=== PATIENT | male | born 1995 | race Caucasian/White ===

== ENCOUNTER 2017-11-23 15:27 | Emergency (ER) | payer BC, OTHER ==
[~2017-11-23] VITALS: Ht 177.8 cm; Wt 122.5 kg
--- OUTSIDE RECORDS SUMMARY | 2017-11-23 15:34 | XMS REPORT ---
Author Author [facility] [employer] [facility] Medical Staff Organization [facility] Address [address], [place] [address] Phone [phone] Care Team Providers Care Welder First Class Name Role Phone ALICIA SNELL MD PP [phone] Summary purpose TRANSITION OF CARE AUTO GENERATION Chief Complaint and Reason for Visit No authorized Reason for Visit (Admitting Diagnosis) is available for this visit. Problem list No authorized problems tracked for continuity of care are available for this visit. Encounters No authorized problems tracked for encounter diagnoses are available for this visit. Medications No medications recorded for this patient visit Allergies, adverse reactions, alerts Allergen Category Ingredient Status Reaction Severity Onset No Known Drug Allergies No known drug allergies No Known Drug Allergies Confirmed or Verified Immunizations No immunizations recorded for this patient visit Relevant diagnostic tests and/or laboratory data No authorized results are available for this patient visit History of procedures No procedures recorded for this patient visit. Functional status No functional or cognitive status observations are available for this visit. Vital signs No authorized vital signs are available for this visit. Social history No Social History or smoking status observations were recorded for this visit. ( Unknown if ever smoked.) Treatment Plan No treatment plan text is available for this visit. Hospital discharge instructions No discharge instruction text is available for this visit.
--- OUTSIDE RECORDS SUMMARY | 2017-11-23 15:34 | XMS REPORT | Clinical Summary ---
Author Author Admin, RAÚL Organization [facility] Address Unknown Phone Unavailable Allergies, Adverse Reactions, Alerts Allergy Name Reaction Description Start Date Severity Status Provider No Known Allergies Wenpeterson Dickinson Conditions or Problems Problem Name Problem Code Onset Date Status Entry Date Provider Comment Standard Description Annotate FLANK PAIN, RIGHT 789.09 Active Radha Lerner Abdominal pain, other specified site; multiple sites URETERAL CALCULUS 592.1 Active Quiana Lerner MD Calculus of ureter Dizziness 780.4 Active Jennifer King APRN Dizziness and giddiness Headache 784.0 Active Jennifer King APRN Headache Depression, acute, recurrent 296.33 Active Jennifer King APRN Major depressive disorder, recurrent episode, severe degree, without mention of psychotic behavior Medication List Medication Instructions Start Date Stop Date Generic Name NDC Status Provider Patient Instruction No Drug Therapy Prescribed - none known did ask Wen Dickinson Vital Signs Date Name Value Unit Range Description blood pressure, diastolic, supine 86 mm[Hg] BP aguila blood pressure, diastolic, standing 81 mm[Hg] BP aguila blood pressure, diastolic 85 mm[Hg] BP aguila blood pressure, systolic, supine E&M 132 mm[Hg] BP sys blood pressure, systolic, standing 134 mm[Hg] BP sys blood pressure, systolic 136 mm[Hg] BP sys height E&M 72 [in_us] Bdy height pulse rate E&M 72 /min Heart rate temperature E&M 98.6 [degF] Body temperature weight E&M 279 [lb_av] Weight Measured Diagnostic Results Date Name Value Unit Range Description Lab Report: CBC W/DIFF - Hematology leukocyte count, blood 7.3 10^3/MM^3 10*3/mm3 4.6-10.2 neutrophils as percent of blood leukocytes 60.9 % 42.2-75.2 monocytes as percent of blood leukocytes 6.3 % 1.7-9.3 lymphocytes as percent of blood leukocytes 29.2 % 20.5-51.1 erythrocyte (RBC) count 5.39 10^6/MM^3 10*6/mm3 4.50-6.50 hemoglobin, blood 16.6 g/dL 14.0-18.0 hematocrit, blood 49.3 % 40.0-54.0 mean corpuscular volume, RBC 91 fL 80-97 mean corpuscular hemoglobin, RBC 30.9 pg 27.0-31.2 mean corpuscular hemoglobin concentration, RBC 33.8 G/DL % 31.8- 35.4 red blood cell distribution width 13.1 % 13.0-18.0 platelet count 267 10^3/MM^3 10*3/mm3 142-424 Lab Report: Comp. Metabolic Panel, Thyroid Stimulating Hormone (L), Free ... - Chemistry sodium, serum 141 mmol/L 491-334 4048/10/11 carbon dioxide, venous blood 28.0 mmol/L 21.0-32.0 potassium, serum 4.4 mmol/L 3.5-5.2 chloride, serum 103 mmol/L 98-107 blood glucose 98 mg/dL 65-110 urea nitrogen, blood 10 mg/dL 7-18 creatinine, serum 0.93 mg/dL 0.60-1.30 alanine aminotransferase (SGPT), serum 35 U/L 12-78 aspartate aminotransferase (SGOT), serum 14 U/L 15-37 calcium, serum 9.3 mg/dL 8.5-10.1 bilirubin, serum, total 0.50 mg/dL 0.00-1.00 TSH 3.55 m[iU]/mL 0.36-3.74 thyroxine, serum, free 0.96 ng/dL 0.59-1.17 Encounters Code Encounter Date Provider Facility CPT-39862 Level 4 New Patient 13:29:33 CDT Jennifer King APRN [facility] CPT-11283 Level 4 New Patient 20:08:56 CDT Quiana Lerner MD [facility] Procedures Code Procedure Name Date Entry Date Standard Description CPT-34363 Urine Dip (Floor Use Only) 20:08:56 CDT CPT-92174 Abd single AP View 13:34:22 CDT
--- OUTSIDE RECORDS SUMMARY | 2017-11-23 15:34 | XMS REPORT | Clinical Summary ---
Author Author Admin, RAÚL Organization [facility] Address Unknown Phone Unavailable Allergies, Adverse Reactions, [...] ... - Chemistry sodium, serum 141 mmol/L 460-318 0454/10/11 carbon dioxide, venous blood 28.0 mmol/L 21.0-32.0 [...] 0.59-1.17 Encounters Code Encounter Date Provider Facility CPT-36772 Level 4 New Patient 13:29:33 CDT Jennifer King APRN [facility] CPT-93867 Level 4 New Patient 20:08:56 CDT Quiana Lerner MD [facility] Procedures Code Procedure Name Date Entry Date Standard Description CPT-03785 Urine Dip (Floor Use Only) 20:08:56 CDT CPT-58413 Abd single AP View 13:34:22 CDT
--- OUTSIDE RECORDS SUMMARY | 2017-11-23 15:34 | XMS REPORT ---
Author Author [facility] [employer] [facility] Medical Staff Organization [facility] Address [address], [place] [address] Phone [phone] Care Team Providers Care Core Maker Name Role Phone ALICIA SNELL MD PP [phone] Summary purpose TRANSITION OF CARE AUTO GENERATION [...]
--- OUTSIDE RECORDS SUMMARY | 2017-11-23 15:34 | XMS REPORT | Clinical Summary ---
Author Author Admin, RAÚL Organization [facility] Address Unknown Phone Unavailable Allergies, Adverse Reactions, [...] ... - Chemistry sodium, serum 141 mmol/L 475-563 1498/10/11 carbon dioxide, venous blood 28.0 mmol/L 21.0-32.0 [...] 0.59-1.17 Encounters Code Encounter Date Provider Facility CPT-45852 Level 4 New Patient 13:29:33 CDT Jennifer King APRN [facility] CPT-45876 Level 4 New Patient 20:08:56 CDT Quiana Lerner MD [facility] Procedures Code Procedure Name Date Entry Date Standard Description CPT-25915 Urine Dip (Floor Use Only) 20:08:56 CDT CPT-87809 Abd single AP View 13:34:22 CDT
--- OUTSIDE RECORDS SUMMARY | 2017-11-23 15:34 | XMS REPORT ---
Author Author JON HUGHES [facility] Address [address] [place] [address] Care Team Providers Care Merchandise Manager Name Role Phone JON HUGHES Unavailable PROBLEMS Unknown Problems ALLERGIES No Information ENCOUNTERS Encounter Location Date Diagnosis [facility] [address] [facility] [id number] [address] Feb, Visit for TB skin test Z11.1 IMMUNIZATIONS No Known Immunizations SOCIAL HISTORY Never Assessed REASON FOR VISIT TB skin test--[facility] PLAN OF CARE Activity Details Follow Up 48-72 hours Reason: VITAL SIGNS MEDICATIONS Unknown Medications RESULTS No Results PROCEDURES Procedure Date Ordered Result Body Site TB INTRADERMAL 2017-03-12 N/A TB INTRADERMAL TEST Mar 12, 2017 INSTRUCTIONS MEDICATIONS ADMINISTERED No Known Medications
--- OUTSIDE RECORDS SUMMARY | 2017-11-23 15:34 | XMS REPORT | Clinical Summary ---
Author Author Admin, RAÚL Organization [facility] Address Unknown Phone Unavailable Allergies, Adverse Reactions, Alerts Allergy Name Reaction Description Start Date Severity Status Provider No Known Allergies Gabi Stephenson Conditions or Problems Problem Name Problem Code Onset Date Status Entry Date Provider Comment Standard Description Annotate FLANK PAIN, RIGHT 789.09 Active Radha Lerner Abdominal pain, other specified site; multiple sites URETERAL CALCULUS 592.1 Active Quiana Lerner MD Calculus of ureter Dizziness 780.4 Active Jennifer King APRN Dizziness and giddiness Headache 784.0 Active Jennifer King APRN Headache Medication List Medication Instructions Start Date Stop Date Generic Name NDC Status Provider Patient Instruction No Drug Therapy Prescribed - none known did ask Gabi Stephenson Diagnostic Results Date Name Value Unit Range [...] ... - Chemistry sodium, serum 141 mmol/L 378-413 9198/10/11 carbon dioxide, venous blood 28.0 mmol/L 21.0-32.0 [...] 0.59-1.17 Encounters Code Encounter Date Provider Facility CPT-78798 Level 4 New Patient 20:08:56 CDT Quiana Lerner MD [facility] Procedures Code Procedure Name Date Entry Date Standard Description CPT-01050 Urine Dip (Floor Use Only) 20:08:56 CDT CPT-67732 Abd single AP View 13:34:22 CDT
--- OUTSIDE RECORDS SUMMARY | 2017-11-23 15:34 | XMS REPORT | Clinical Summary ---
Author Author Admin, RAÚL Organization [facility] Address Unknown Phone Unavailable Allergies, [...] ... - Chemistry sodium, serum 141 mmol/L 208-214 2527/10/11 carbon dioxide, venous blood 28.0 mmol/L 21.0-32.0 [...] 0.59-1.17 Encounters Code Encounter Date Provider Facility CPT-89011 Level 4 New Patient 13:29:33 CDT Jennifer King APRN [facility] CPT-21474 Level 4 New Patient 20:08:56 CDT Quiana Lerner MD [facility] Procedures Code Procedure Name Date Entry Date Standard Description CPT-33408 Urine Dip (Floor Use Only) 20:08:56 CDT CPT-78022 Abd single AP View 13:34:22 CDT
--- OUTSIDE RECORDS SUMMARY | 2017-11-23 15:34 | XMS REPORT | Clinical Summary ---
Author Author Admin, RAÚL Organization [facility] Address Unknown Phone Unavailable Allergies, Adverse [...] ... - Chemistry sodium, serum 141 mmol/L 788-753 4458/10/11 carbon dioxide, venous blood 28.0 mmol/L 21.0-32.0 [...] 0.59-1.17 Encounters Code Encounter Date Provider Facility CPT-93189 Level 4 New Patient 13:29:33 CDT Jennifer King APRN [facility] CPT-61795 Level 4 New Patient 20:08:56 CDT Quiana Lerner MD [facility] Procedures Code Procedure Name Date Entry Date Standard Description CPT-33882 Urine Dip (Floor Use Only) 20:08:56 CDT CPT-05102 Abd single AP View 13:34:22 CDT
--- OUTSIDE RECORDS SUMMARY | 2017-11-23 15:35 | XMS REPORT | Clinical Summary ---
Author Author Admin, RAÚL Organization [facility] Address Unknown Phone Unavailable Allergies, Adverse [...] ... - Chemistry sodium, serum 141 mmol/L 680-070 9579/10/11 carbon dioxide, venous blood 28.0 mmol/L 21.0-32.0 [...] 0.59-1.17 Encounters Code Encounter Date Provider Facility CPT-20729 Level 4 New Patient 20:08:56 CDT Quiana Lerner MD [facility] Procedures Code Procedure Name Date Entry Date Standard Description CPT-95217 Urine Dip (Floor Use Only) 20:08:56 CDT CPT-48547 Abd single AP View 13:34:22 CDT
--- OUTSIDE RECORDS SUMMARY | 2017-11-23 15:35 | XMS REPORT | Continuity of Care Document ---
Author Author [facility] Organization [facility] Address [address] [place] [address] Phone Unavailable Care Team Providers Care Rat Culturist Name Role Phone ALICIA SNELL MD PCP Insurance Providers Payer Name Policy Number Subscriber Name Relationship [facility] [id number] Funmilayo Moya 18 Self / Same As Patient Advance Directives Directive Response Recorded Date/Time Advance Directives No 09/22/14 3:28am Durable POA for HC No 09/22/14 3:28am Power of Learning Support Resource Room Teacher No 09/22/14 3:28am Organ Donor Yes 09/22/14 3:28am Living Will No 09/22/14 3:28am Chief Complaint and Reason for Visit Chief Complaint General Complaint Reason for Visit Acute tonsillitis [id number] Problems Active Problems Medical Problem Onset Date Status Acute tonsillitis Unknown Acute Dehydration symptoms Unknown Acute Pharyngitis, acute Unknown Acute Viral disease Unknown Acute Medications Current Home Medications Medication Dose Units Route Directions Days/Qty Instructions Start Date Acetaminophen With Codeine (Tylenol # 3 Tablet) 1 Tab 1 Tab Oral Every 6 To 8 Hours As Needed as needed for Pain/Fever 14 09/22/14 Azithromycin 250 Mg Oral Once A Day 6 Take two tablets the first day and then take 1 tablet daily for the next 4 days 09/22/14 No Meds for None 09/22/14 Ondansetron Hcl (Zofran) 4 Mg 4 Mg Oral Every 4 To 6 Hours As Needed as needed for Nausea / Vomiting 20 09/22/14 Social History Social History Problem Response Recorded Date/Time Smoking Status Never smoker 09/22/2014 3:31am Smoked in the last 12 months? No 09/22/2014 3:31am Do you dip or chew tobacco? No 09/22/2014 3:31am Approx how many cigs per day? 0 09/22/2014 3:31am Level of Dependence Low 09/22/2014 3:31am Former smoker, last day smoked? NEVER 09/22/2014 3:31am Query Response Start Date Stop Date Smoking Status Never smoker Hospital Discharge Instructions No hospital discharge instructions. Plan of Care Discharge Date 09/22/14 7:00am Disposition 01 D/C HOME Condition at Discharge Stable and Improved Instructions/Education Provided Dehydration (ED) Pharyngitis (ED) Tonsillitis (ED) Viral Syndrome (ED) Prescriptions See Medication Section Referrals ALICIA SNELL MD - Additional Instructions/Education Home to rest. Have him eat ice chips and drink cool water if throat becomes increasingly painful. drink plenty of fluids today-including electrolytes may use the medication for nausea if needed He may take ibuprofen if needed for generalized aches May use pain medication if needed for severe pain Start antibiotics today as since your symptoms are still fairly severe, we are going to treat your throat with antibiotics Functional Status Query Response Date Recorded Activities of Daily Living Performs w/o Assistance September 22, 2014 3:31am Cognitive Function Intact September 22, 2014 3:31am Allergies, Adverse Reactions, Alerts No known allergies. Immunizations No immunization records. Vital Signs Acute Vital Signs Vital Response Date/Time Temperature (Fahrenheit) 98.6 degrees F (97.6 - 99.5) 09/22/2014 6:30am Temperature (Calculated Celsius) 37.62142 degrees C (36.4 - 37.5) 09/22/2014 6:30am Temperature Source Temporal Artery Scan 09/22/2014 6:30am Pulse Pulse Ox Pulse Rate (adult) 70 beats per minute (60 - 90) 09/22/2014 6:30am Pulse Location Modifier Right 09/22/2014 6:30am Oxygen Saturation Respiratory Rate 14 breaths per minute (12 - 24) 09/22/2014 6:30am O2 Sat by Pulse Oximetry 95 % (90 - 100) 09/22/2014 6:30am Blood Pressure 133/92 mm Hg 09/22/2014 6:30am Blood Pressure Mean 106 mm Hg 09/22/2014 6:30am Height 5 ft 10 in Weight 230 lb Body Mass Index 33.0 kg/m^2 Results Laboratory Results Test Name Result Units Flags Reference Collection Date/Time Result Date/ Time Comments White Blood Count 7.7 x10^3/uL 4.0-11.0 09/22/2014 4:00am 09/22/2014 4: 21am Red Blood Count 4.84 10^6/uL 4.50-6.50 09/22/2014 4:00am 09/22/2014 4: 21am Hematocrit 44.8 % 40.0-54.0 09/22/2014 4:00am 09/22/2014 4:21am Mean Corpuscular Volume 93 fl 76-96 09/22/2014 4:00am 09/22/2014 4: 21am Mean Corpuscular Hemoglobin 31.3 pg 27.0-32.0 09/22/2014 4:00am 2014 4:21am Mean Corpuscular Hemoglobin Concent 33.8 g/dl 31.0-35.0 09/22/2014 4: 00am 09/22/2014 4:21am Red Cell Distribution Width 12.3 % 11.0-16.0 09/22/2014 4:00am 2014 4:21am Platelet Count 251 10^3/uL 150-400 09/22/2014 4:00am 09/22/2014 4:21am Mean Platelet Volume 8.3 fl 6.0-10.0 09/22/2014 4:00am 09/22/2014 4: 21am Neutrophils (%) (Auto) 56.5 % 45.0-70.0 09/22/2014 4:00am 09/22/2014 4: 21am Lymphocytes (%) (Auto) 27.9 % 20.0-40.0 09/22/2014 4:00am 09/22/2014 4: 21am Monocytes (%) (Auto) 8.5 % 3.0-10.0 09/22/2014 4:00am 09/22/2014 4: 21am Eosinophils (%) (Auto) 6.4 % *H 1.0-5.0 09/22/2014 4:00am 09/22/2014 4: 21am Basophils (%) (Auto) 0.7 % H 0.0-0.5 09/22/2014 4:00am 09/22/2014 4: 21am Neutrophils # (Auto) 4.33 x10^3/uL 2.00-7.50 09/22/2014 4:00am 2014 4:21am Lymphocytes # (Auto) 2.14 x10^3/uL 1.50-4.00 09/22/2014 4:00am 2014 4:21am Monocytes # (Auto) 0.65 x10^3/uL 0.20-0.80 09/22/2014 4:00am 2014 4:21am Eosinophils # (Auto) 0.49 x10^3/uL H 0.04-0.40 09/22/2014 4:00am 2014 4:21am Basophils # (Auto) 0.05 x10^3/uL 0.02-0.10 09/22/2014 4:00am 2014 4:21am Streptococcus Screen NEGATIVE NEGATIVE 09/22/2014 6:13am 09/22/2014 6 :36am Volume Urine Centrifuged 12 ml 09/22/2014 4:14am 09/22/2014 4:22am Test based ON 12 ml volume. Urine Color STRAW STRAW 09/22/2014 4:14am 09/22/2014 4:22am Urine Clarity CLEAR CLEAR 09/22/2014 4:14am 09/22/2014 4:22am Urine Specific Mcdermott 1.020 1.010-1.020 09/22/2014 4:14am 2014 4:22am Urine pH 5.0 5.0-6.0 09/22/2014 4:14am 09/22/2014 4:22am Urine Leukocyte Esterase NEGATIVE NEGATIVE 09/22/2014 4:14am 2014 4:22am Urine Nitrite NEGATIVE NEGATIVE 09/22/2014 4:14am 09/22/2014 4:22am Urine Protein NEGATIVE NEGATIVE 09/22/2014 4:14am 09/22/2014 4:22am Urine Glucose (UA) NEGATIVE NEGATIVE 09/22/2014 4:14am 09/22/2014 4: 22am Urine Ketones NEGATIVE NEGATIVE 09/22/2014 4:1409/22/2014 4:22am Urine Urobilinogen 0.2 0.2-1.0 09/22/2014 4:14am 09/22/2014 4:22am Urine Bilirubin NEGATIVE NEGATIVE 09/22/2014 4:1409/22/2014 4: 22am Urine Occult Blood NEGATIVE NEGATIVE 09/22/2014 4:14am 09/22/2014 4: 22am Urine WBC NONE #/HPF OCCASIONAL 09/22/2014 4:1409/22/2014 4:22am Urine RBC NONE #/HPF OCCASIONAL 09/22/2014 4:14am 09/22/2014 4:22am Urine Epithelial Cells NONE #/HPF OCCASIONAL 09/22/2014 4:14am 2014 4:22am Urine Other Casts NONE #/LPF NEGATIVE 09/22/2014 4:1409/22/2014 4: 22am Urine Bacteria NONE NONE 09/22/2014 4:14am 09/22/2014 4:22am Urine Other Crystals NONE NONE 09/22/2014 4:1409/22/2014 4:22am Urine Mucus NONE NONE 09/22/2014 4:1409/22/2014 4:22am Urine Culture Indicated YES A NO 09/22/2014 4:1409/22/2014 6:37am Sodium Level 140 mmol/L 137-145 09/22/2014 4:00am 09/22/2014 4:31am Potassium Level 3.6 mmol/L 3.5-5.1 09/22/2014 4:00am 09/22/2014 4:31am Carbon Dioxide Level 26.1 mmol/L 09/22/2014 4:0009/22/2014 4: 31am Anion Gap 15.5 mEq/L -09/22/2014 4:00am 09/22/2014 4:31am Blood Urea Nitrogen 13 mg/dL 11-1109/22/2014 4:00am 09/22/2014 4:31am Creatinine 1.10 mg/dl 0.66-1.25 09/22/2014 4:00am 09/22/2014 4:31am Est Glomerular Filtrat Rate mL/min 86.23 09/22/2014 4:002014 4:31am GFR NORMALS: Stage I: GFR >90 Stage II GFR 60-89 Stage III GFR 30-60 Stage IV: GFR 15-29 Stage V: GFR <15 BUN/Creatinine Ratio 11.81 09/22/2014 4:00am 09/22/2014 4:31am Glucose Level 111 mg/dL H 74-106 09/22/2014 4:00am 09/22/2014 4:31am Calculated Osmolality 290.6 mosm/kg 273-304 09/22/2014 4:00am 2014 4:31am Calcium Level 9.0 mg/dL 8.4-10.2 09/22/2014 4:00am 09/22/2014 4:31am Total Bilirubin 0.6 mg/dL 0.2-1.3 09/22/2014 4:00am 09/22/2014 4:31am Aspartate Amino Transf (AST/SGOT) 22 U/L 17-59 09/22/2014 4:00am 2014 4:31am Alanine Aminotransferase (ALT/SGPT) 42 U/L 21-72 09/22/2014 4:00am 02/2014 4:31am Alkaline Phosphatase 71 U/L 38-126 09/22/2014 4:00am 09/22/2014 4:31am Total Protein 6.8 g/dL 6.4-8.4 09/22/2014 4:00am 09/22/2014 4:31am Albumin 3.9 g/dL 3.4-5.5 09/22/2014 4:00am 09/22/2014 4:31am Globulin 2.9 2.3-3.5 09/22/2014 4:00am 09/22/2014 4:31am Albumin/Globulin Ratio 1.344 09/22/2014 4:00am 09/22/2014 4:31am Amylase Level 39 U/L 30-110 09/22/2014 6:13am 09/22/2014 6:29am Lipase 121 U/L 23-300 09/22/2014 6:13am 09/22/2014 6:29am Monoscreen NEGATIVE NEGATIVE 09/22/2014 6:13am 09/22/2014 6:29am Procedures No known history of procedures. Encounters Encounter Location Arrival/Admit Date Discharge/Depart Date Attending Provider Departed Emergency Room [facility] 08/01/15 3:25am 09/22/14 7: 00am NABILA MOYA APRN Recent Diagnosis
--- OUTSIDE RECORDS SUMMARY | 2017-11-23 15:35 | XMS REPORT | Clinical Summary ---
Author Author Admin, RAÚL Organization [facility] Address Unknown Phone Unavailable Allergies, Adverse Reactions, [...] ... - Chemistry sodium, serum 141 mmol/L 420-500 8649/10/11 carbon dioxide, venous blood 28.0 mmol/L 21.0-32.0 [...] 0.59-1.17 Encounters Code Encounter Date Provider Facility CPT-61369 Level 4 New Patient 20:08:56 CDT Quiana Lerner MD [facility] Procedures Code Procedure Name Date Entry Date Standard Description CPT-16725 Urine Dip (Floor Use Only) 20:08:56 CDT CPT-43201 Abd single AP View 13:34:22 CDT
--- OUTSIDE RECORDS SUMMARY | 2017-11-23 15:35 | XMS REPORT | Clinical Summary ---
Author Author Admin, RAÚL Organization [facility] Address Unknown Phone Unavailable Allergies, Adverse [...] ... - Chemistry sodium, serum 141 mmol/L 203-593 9113/10/11 carbon dioxide, venous blood 28.0 mmol/L 21.0-32.0 [...] 0.59-1.17 Encounters Code Encounter Date Provider Facility CPT-68407 Level 4 New Patient 13:29:33 CDT Jennifer King APRN [facility] CPT-73576 Level 4 New Patient 20:08:56 CDT Quiana Lerner MD [facility] Procedures Code Procedure Name Date Entry Date Standard Description CPT-89196 Urine Dip (Floor Use Only) 20:08:56 CDT CPT-83638 Abd single AP View 13:34:22 CDT
--- OUTSIDE RECORDS SUMMARY | 2017-11-23 15:35 | XMS REPORT | Clinical Summary ---
Author Author Admin, RAÚL Organization [facility] Address Unknown Phone Unavailable Allergies, Adverse Reactions, [...] ... - Chemistry sodium, serum 141 mmol/L 312-638 4226/10/11 carbon dioxide, venous blood 28.0 mmol/L 21.0-32.0 [...] 0.59-1.17 Encounters Code Encounter Date Provider Facility CPT-50354 Level 4 New Patient 20:08:56 CDT Quiana Lerner MD [facility] Procedures Code Procedure Name Date Entry Date Standard Description CPT-11095 Urine Dip (Floor Use Only) 20:08:56 CDT CPT-78020 Abd single AP View 13:34:22 CDT
--- OUTSIDE RECORDS SUMMARY | 2017-11-23 15:35 | XMS REPORT | Clinical Summary ---
Author Author Admin, RAÚL Organization [facility] Address Unknown Phone Unavailable Allergies, Adverse Reactions, [...] ... - Chemistry sodium, serum 141 mmol/L 215-897 6804/10/11 carbon dioxide, venous blood 28.0 mmol/L 21.0-32.0 [...] 0.59-1.17 Encounters Code Encounter Date Provider Facility CPT-98206 Level 4 New Patient 20:08:56 CDT Quiana Lerner MD [facility] Procedures Code Procedure Name Date Entry Date Standard Description CPT-67458 Urine Dip (Floor Use Only) 20:08:56 CDT CPT-41703 Abd single AP View 13:34:22 CDT
--- OUTSIDE RECORDS SUMMARY | 2017-11-23 15:35 | XMS REPORT | Continuity of Care Document ---
Author Author [facility] Organization [facility] Address [address] [place] [address] Phone Unavailable Care Team Providers Care Enrollment Nurse Name Role Phone ALICIA SNELL MD PCP Insurance Providers Payer Name Policy Number Subscriber Name Relationship Workers Compensation [id number] Funmilayo Moya 20 Employee Advance Directives Directive Response Recorded Date/Time Advance Directives No 09/19/15 3:23pm Advance Directive on File No 09/20/15 2:16am Durable POA for HC No 09/20/15 2:16am Power of Home Inspector No 09/20/15 2:16am Organ Donor No 09/20/15 2:16am Living Will No 09/20/15 2:16am Chief Complaint and Reason for Visit Chief Complaint Nausea,Vomiting,Diarrhea Reason for Visit Headache Problems Active Problems Medical Problem Onset Date Status Acute tonsillitis Unknown Acute Dehydration symptoms Unknown Acute Headache Unknown Acute Heat exhaustion Unknown Acute Pharyngitis, acute Unknown Acute Viral disease Unknown Acute Medications Current Home Medications Medication Dose Units Route Directions Days/Qty Instructions Start Date Hydrocodone/Acetaminophen 1 Each 1 Each Oral Every 4 To 6 Hours As Needed as needed for Pain 10 09/19/15 Past Home Medications Medication Directions Ordered Status [No Meds] , for None 09/22/14 Discontinued Azithromycin (Zithromax) 250 Mg Tablet, 250 Mg Oral Once A Day 09/22/14 Discontinued Acetaminophen With Codeine 1 Tab Tablet, 1 Tab Oral Every 6 To 8 Hours As Needed as needed for Pain/Fever 09/22/14 Discontinued Ondansetron Hcl 4 Mg Tablet, 4 Mg Oral Every 4 To 6 Hours As Needed as needed for Nausea / Vomiting 09/22/14 Discontinued Social History Social History Problem Response Recorded Date/Time Alcohol Use none 09/20/2015 2:30am Drug Use none 09/20/2015 2:30am Smoking Status Never smoker 09/20/2015 2:18am Smoked in the last 12 months? No 09/20/2015 2:18am Do you dip or chew tobacco? No 09/20/2015 2:18am Approx how many cigs per day? 0 09/20/2015 2:18am Level of Dependence Low 09/20/2015 2:30am Former smoker, last day smoked? Never 09/20/2015 2:18am Query Response Start Date Stop Date Smoking Status Never smoker Hospital Discharge Instructions No hospital discharge instructions. Plan of Care Discharge Date 09/20/15 2:30am Disposition 02 D/C TO OTHER ACUTE FACILITY Condition at Discharge Stable Instructions/Education Provided Acute Nausea and Vomiting (ED) Forms Provided ER Discharge Phone Call Check Prescriptions See Medication Section Referrals ALICIA SNELL MD - Additional Instructions/Education Transfer to [facility] Functional Status Query Response Date Recorded Activities of Daily Living Performs with Assistance September 20, 2015 2:19am Cognitive Function Moderately Impaired September 20, 2015 2:19am Allergies, Adverse Reactions, Alerts No known allergies. Immunizations No immunization records. Vital Signs Acute Vital Signs Vital Response Date/Time Temperature (Fahrenheit) 98 degrees F (97.6 - 99.5) 09/20/2015 2:20am Temperature (Calculated Celsius) 36.6696 degrees C (36.4 - 37.5) 09/20/2015 2 :20am Temperature Source Temporal Artery Scan 09/20/2015 2:20am Pulse Pulse Ox Pulse Rate (adult) 63 beats per minute (60 - 90) 09/20/2015 2:20am Pulse Location Modifier Right 09/20/2015 2:20am Oxygen Saturation Respiratory Rate 16 breaths per minute (12 - 24) 09/20/2015 2:20am O2 Sat by Pulse Oximetry 98 % (90 - 100) 09/20/2015 2:20am Blood Pressure 147/97 mm Hg 09/20/2015 2:20am Blood Pressure Mean 114 mm Hg 09/20/2015 2:20am Height 6 ft 0 in Weight 270 lb Body Mass Index 36.6 kg/m^2 Results Laboratory Results Test Name Result Units Flags Reference Collection Date/Time Result Date/ Time Comments White Blood Count 6.6 x10^3/uL 4.0-11.0 09/19/2015 4:09/19/2015 4: 44pm Red Blood Count 4.69 10^6/uL 4.50-6.50 09/19/2015 4:09/19/2015 4: 44pm Hematocrit 41.9 % 40.0-54.0 09/19/2015 4:09/19/2015 4:44pm Mean Corpuscular Volume 89 fl 76-96 09/19/2015 4:09/19/2015 4: 44pm Mean Corpuscular Hemoglobin 31.3 pg 27.0-32.0 09/19/2015 4:2015 4:44pm Mean Corpuscular Hemoglobin Concent 35.1 g/dl H 31.0-35.0 09/19/2015 4: 09/19/2015 4:44pm Red Cell Distribution Width 12.7 % 11.0-16.0 09/19/2015 4:2015 4:44pm Platelet Count 230 10^3/uL 150-400 09/19/2015 4:09/19/2015 4:44pm Mean Platelet Volume 10.1 fl H 6.0-10.0 09/19/2015 4:09/19/2015 4: 44pm Neutrophils (%) (Auto) 59.7 % 45.0-70.0 09/19/2015 4:09/19/2015 4: 44pm Lymphocytes (%) (Auto) 28.4 % 20.0-40.0 09/19/2015 4:09/19/2015 4: 44pm Monocytes (%) (Auto) 9.7 % 3.0-10.0 09/19/2015 4:09/19/2015 4: 44pm Eosinophils (%) (Auto) 1.7 % 1.0-5.0 09/19/2015 4:09/19/2015 4: 44pm Basophils (%) (Auto) 0.5 % 0.0-0.5 09/19/2015 4:09/19/2015 4:44pm Neutrophils # (Auto) 3.93 x10^3/uL 2.00-7.50 09/19/2015 4:pm 2015 4:44pm Lymphocytes # (Auto) 1.87 x10^3/uL 1.50-4.00 09/19/2015 4:pm 2015 4:44pm Monocytes # (Auto) 0.64 x10^3/uL 0.20-0.80 09/19/2015 4:2015 4:44pm Eosinophils # (Auto) 0.11 x10^3/uL 0.04-0.40 09/19/2015 4:pm 2015 4:44pm Basophils # (Auto) 0.03 x10^3/uL 0.02-0.10 09/19/2015 4:pm 2015 4:44pm Volume Urine Centrifuged 12 ml 09/19/2015 5:09/19/2015 5:40pm Test based ON 12 ml volume. Urine Color STRAW STRAW 09/19/2015 5:09/19/2015 5:40pm Urine Clarity CLEAR CLEAR 09/19/2015 5:09/19/2015 5:40pm Urine Specific Calmar 1.020 1.010-1.020 09/19/2015 5:2015 5:40pm Urine pH 6.5 A 5.0-6.0 09/19/2015 5:09/19/2015 5:40pm Urine Leukocyte Esterase NEGATIVE NEGATIVE 09/19/2015 5:2015 5:40pm Urine Nitrite NEGATIVE NEGATIVE 09/19/2015 5:09/19/2015 5:40pm Urine Protein NEGATIVE NEGATIVE 09/19/2015 5:09/19/2015 5:40pm Urine Glucose (UA) NEGATIVE NEGATIVE 09/19/2015 5:09/19/2015 5: 40pm Urine Ketones NEGATIVE NEGATIVE 09/19/2015 5:09/19/2015 5:40pm Urine Urobilinogen 0.2 0.2-1.0 09/19/2015 5:09/19/2015 5:40pm Urine Bilirubin NEGATIVE NEGATIVE 09/19/2015 5:09/19/2015 5: 40pm Urine Occult Blood NEGATIVE NEGATIVE 09/19/2015 5:09/19/2015 5: 40pm Urine WBC NONE #/HPF OCCASIONAL 09/19/2015 5:09/19/2015 5:40pm Urine RBC NONE #/HPF OCCASIONAL 09/19/2015 5:09/19/2015 5:40pm Urine Epithelial Cells NONE #/HPF OCCASIONAL 09/19/2015 5:2015 5:40pm Urine Other Casts NONE #/LPF NEGATIVE 09/19/2015 5:09/19/2015 5: 40pm Urine Bacteria NONE NONE 09/19/2015 5:09/19/2015 5:40pm Urine Other Crystals NONE NONE 09/19/2015 5:09/19/2015 5:40pm Urine Mucus NONE NONE 09/19/2015 5:09/19/2015 5:40pm Urine Culture Indicated NO NO 09/19/2015 5:09/19/2015 5:40pm Sodium Level 140 mmol/L 137-145 09/19/2015 4:09/19/2015 4:46pm Potassium Level 3.8 mmol/L 3.5-5.1 09/19/2015 4:09/19/2015 4:46pm Carbon Dioxide Level 24.1 mmol/L 09/19/2015 4:09/19/2015 4: 46pm Anion Gap 15.7 mEq/L -09/19/2015 4:09/19/2015 4:46pm Blood Urea Nitrogen 15 mg/dL 11-1109/19/2015 4:09/19/2015 4:46pm Creatinine 1.08 mg/dl 0.66-1.25 09/19/2015 4:09/19/2015 4:46pm Est Glomerular Filtrat Rate mL/min 87.17 09/19/2015 4:2015 4:43pm GFR NORMALS: Stage I: GFR >90 Stage II GFR 60-89 Stage III GFR 30-60 Stage IV: GFR 15-29 Stage V: GFR <15 BUN/Creatinine Ratio 13.88 09/19/2015 4:09/19/2015 4:46pm Glucose Level 95 mg/dL 74-106 09/19/2015 4:pm 09/19/2015 4:46pm Calculated Osmolality 290.3 mosm/kg 273-304 09/19/2015 4:2015 4:46pm Calcium Level 9.0 mg/dL 8.4-10.2 09/19/2015 4:09/19/2015 4:46pm Total Bilirubin 0.5 mg/dL 0.2-1.3 09/19/2015 4:pm 09/19/2015 4:46pm Aspartate Amino Transf (AST/SGOT) 17 U/L 17-59 09/19/2015 4:pm 2015 4:46pm Alanine Aminotransferase (ALT/SGPT) 41 U/L 21-72 09/19/2015 4:pm 4:46pm Alkaline Phosphatase 66 U/L 38-126 09/19/2015 4:09/19/2015 4:46pm Total Creatine Kinase 271 U/L H 55-170 09/19/2015 5:pm 09/19/2015 5: 25pm Troponin < 0.05 mg/mL 0-0.056 09/19/2015 5:pm 09/19/2015 5:25pm Creatine Kinase MB 1.5 ng/mL 0-3.6 09/19/2015 5:pm 09/19/2015 5:25pm Total Protein 6.7 g/dL 6.4-8.4 09/19/2015 4:pm 09/19/2015 4:46pm Albumin 3.9 g/dL 3.4-5.5 09/19/2015 4:09/19/2015 4:46pm Globulin 2.8 2.3-3.5 09/19/2015 4:09/19/2015 4:46pm Albumin/Globulin Ratio 1.392 09/19/2015 4:pm 09/19/2015 4:46pm Procedures No known history of procedures. Encounters Encounter Location Arrival/Admit Date Discharge/Depart Date Attending Provider Departed Emergency Room [facility] 09/20/15 1:50am 09/20/15 2: 30am ARIEL ROGERS Departed Emergency Room [facility] 09/19/15 2:45pm 09/19/15 6: 30pm ARIEL ROGERS Recent Diagnosis
--- OUTSIDE RECORDS SUMMARY | 2017-11-23 15:36 | XMS REPORT | Continuity of Care Document ---
Author Author [facility] Organization [facility] Address [facility] [address] [place] [address] Phone Unavailable Support Name Relationship Address Phone WOODY HENATHAN Caregiver [address] [place] [address] Unavailable GRIFFIN DENICE Next Of Kin [address] [place] [address] Insurance Providers Payer Name Policy Number Subscriber Name Relationship [place] Other [id number] Funmilayo Moya 18 Self / Same As Patient Advance Directives Directive Response Recorded Date/Time Advance Directives No 09/20/15 6:28am Living Will No 09/20/15 6:28am Health Care Proxy No 09/20/15 6:28am Power of Compressor Operator Portable for Health Care No 09/20/15 6:28am Organ, Tissue, or Eye Donor No 09/20/15 6:28am Do you have a signed organ donor card? No 09/20/15 6:28am Chief Complaint and Reason for Visit Chief Complaint HEADACHE Reason for Visit Syncope Problems Active Problems Medical Problem Onset Date Status Syncope Unknown Acute Medications No medication information available. Social History Social History Problem Response Recorded Date/Time Smoking Status Never smoker 09/20/2015 3:49am Tobacco Use Denies Use 09/20/2015 3:49am Alcohol Use none 09/20/2015 3:49am Drug Use none 09/20/2015 3:49am Query Response Start Date Stop Date Smoking Status Never smoker Hospital Discharge Instructions No hospital discharge instructions. Plan of Care Discharge Date 09/20/15 4:45am Disposition 01 HOME, ASSISTED,ASSISTED LIVING Condition at Discharge Stable Instructions/Education Provided Syncope (ED) Prescriptions See Medication Section Referrals Your Physician - 2-3 Days Additional Instructions/Education Avoid heat exposure for the next 2-3 days, stay adequately hydrated with water. Avoid excess physical activity until you are feeling better. Please follow up with your physician in the next 2-3 days. Return immediately for worsening signs or symptoms. Functional Status Query Response Date Recorded Patient Behavior Fatigued Cooperative Appropriate September 20, 2015 3:21am Allergies, Adverse Reactions, Alerts No allergy information available. Immunizations Name Given Type Hx Diphtheria, Pertussis, Tetanus Vaccination Up To Date Historical Hx Influenza Vaccination Yes Historical Hx Pneumococcal Vaccination Yes Historical Vital Signs Acute Vital Signs Vital Response Date/Time Temperature (Fahrenheit) 97.7 degrees F (97.6 - 99.5) 09/20/2015 3:27am Temperature Source Temporal Artery 09/20/2015 3:27am Pulse Rate (adult) 55 bpm (60 - 90) 09/20/2015 4:31am Respiratory Rate 20 bpm (12 - 24) 09/20/2015 4:31am Blood Pressure 123/62 mm Hg 09/20/2015 4:31am O2 Sat by Pulse Oximetry 97 % (90 - 100) 09/20/2015 4:31am Oxygen Delivery Method 09/20/2015 4:31am Height 6 ft 0 in Weight 270 lb Body Mass Index 36.0 kg/m^2 Results No known relevant diagnostic tests, laboratory data and/or discharge summary. Procedures Procedure Status Date Provider(s) Computed tomography of head without contrast Completed 09/20/15 EMMA HE DO Encounters Encounter Location Arrival/Admit Date Discharge/Depart Date Attending Provider Departed Emergency Room [place] 09/20/15 3:23am 09/20/15 4:45am EMMA HE DO Recent Diagnosis
--- OUTSIDE RECORDS SUMMARY | 2017-11-23 15:36 | XMS REPORT | Continuity of Care Document ---
Author Author [facility] Organization [facility] Address [address] [place] [address] Phone Unavailable Care Team Providers Care [employer] Shuttle Driver Name Role Phone ALICIA BARTON MD PCP Insurance Providers Payer Name Policy Number Subscriber Name Relationship [facility] [id number] Funmilayo Moya 19 Child Advance Directives Directive Response Recorded Date/Time Advance Directives No 09/19/15 3:23pm Advance Directive on File No 07/31/16 11:11pm Durable POA for HC No 07/31/16 11:11pm Power of Distribution Field Technician No 07/31/16 11:11pm Organ Donor No 07/31/16 11:11pm Living Will No 07/31/16 11:11pm Chief Complaint and Reason for Visit Chief Complaint Male Urogenital Problems Reason for Visit [id number] Headache Problems Active Problems Medical Problem Onset Date Status Acute tonsillitis Unknown Acute Dehydration symptoms Unknown Acute Headache Unknown Acute Heat exhaustion Unknown Acute Myalgia Unknown Acute Pharyngitis, acute Unknown Acute Syncope Unknown Acute Viral disease Unknown Acute Medications Current Home Medications Medication Dose Units Route Directions Days/Qty Instructions Start Date Hydrocodone/Acetaminophen 1 Each 1 Each Oral Every 4 To 6 Hours As Needed as needed for Pain 10 09/19/15 Butalb/Acetaminophen/Caffeine 1 Each 1 Each Oral Every 6 To 8 Hours As Needed as needed for Headache 03/24/16 Past Home Medications Medication Directions Ordered Status [...] Response Recorded Date/Time Smoking Status Never smoker 07/31/2016 11:16pm Smoked in the last 12 months? No 07/31/2016 11:16pm Do you dip or chew tobacco? No 07/31/2016 11:16pm Approx how many cigs per day? 0 07/31/2016 11:16pm Level of Dependence Low 07/31/2016 11:16pm Former smoker, last day smoked? NA 07/31/2016 11:16pm Query Response Start Date Stop Date Smoking Status Never smoker Hospital Discharge Instructions No hospital discharge instructions. Plan of Care Discharge Date 08/01/16 1:26am Disposition 07 AGAINST MEDICAL ADVICE Condition at Discharge Stable and Improved Instructions/Education Provided Dehydration (ED) Forms Provided ER Discharge Phone Call Check Prescriptions See Medication Section Referrals ALICIA BARTON MD - Additional Instructions/Education Fluids and nausea medicine given in ER. Go home and rest. Follow up with Dr. Barton's office to discuss need for referral. Pt spoke and a request for a neurology consult for the headaches with syncope and vomiting at times. Return to ER for concerns or issues. Keep headache journal/diary of frequency and symptoms. Reference Links Functional Status Query Response Date Recorded Activities of Daily Living Performs w/o Assistance July 31, 2016 11:17pm Allergies, Adverse Reactions, Alerts No known allergies. Immunizations No immunization records. Vital Signs Acute Vital Signs Vital Response Date/Time Temperature (Fahrenheit) 98.0 degrees F (97.6 - 99.5) 08/01/2016 1:23am Temperature (Calculated Celsius) 36.79213 degrees C (36.4 - 37.5) 08/01/2016 1:23am Temperature Source Tympanic 08/01/2016 1:23am Pulse Pulse Ox Pulse Rate (adult) 72 beats per minute (60 - 90) 08/01/2016 1:23am Pulse Location Modifier Left 08/01/2016 1:23am Oxygen Saturation Respiratory Rate 16 breaths per minute (12 - 24) 08/01/2016 1:23am O2 Sat by Pulse Oximetry 96 % (90 - 100) 08/01/2016 1:23am Blood Pressure 133/63 mm Hg 08/01/2016 1:23am Blood Pressure Mean 86 mm Hg 08/01/2016 1:23am Height 5 ft 11 in Weight 284 lb Body Mass Index 39.6 kg/m^2 Results Laboratory Results Test Name Result Units Flags Reference Collection Date/Time Result Date/ Time Comments White Blood Count 7.7 x10^3/uL 4.0-11.0 03/23/2016 10:30pm 03/23/2016 10:48pm Red Blood Count 5.03 10^6/uL 4.50-6.50 03/23/2016 10:30pm 03/23/2016 10 :48pm Hematocrit 44.4 % 40.0-54.0 03/23/2016 10:30pm 03/23/2016 10:48pm Mean Corpuscular Volume 88 fl 76-96 03/23/2016 10:30pm 03/23/2016 10: 48pm Mean Corpuscular Hemoglobin 30.6 pg 27.0-32.0 03/23/2016 10:30pm 2016 10:48pm Mean Corpuscular Hemoglobin Concent 34.7 g/dl 31.0-35.0 03/23/2016 10: 30pm 03/23/2016 10:48pm Red Cell Distribution Width 12.9 % 11.0-16.0 03/23/2016 10:30pm 2016 10:48pm Platelet Count 242 10^3/uL 150-400 03/23/2016 10:30pm 03/23/2016 10: 48pm Mean Platelet Volume 10.2 fl H 6.0-10.0 03/23/2016 10:30pm 03/23/2016 10 :48pm Neutrophils (%) (Auto) 58.6 % 45.0-70.0 03/23/2016 10:30pm 03/23/2016 10:48pm Lymphocytes (%) (Auto) 32.7 % 20.0-40.0 03/23/2016 10:30pm 03/23/2016 10:48pm Monocytes (%) (Auto) 7.3 % 3.0-10.0 03/23/2016 10:30pm 03/23/2016 10: 48pm Eosinophils (%) (Auto) 0.7 % L 1.0-5.0 03/23/2016 10:30pm 03/23/2016 10: 48pm Basophils (%) (Auto) 0.7 % H 0.0-0.5 03/23/2016 10:30pm 03/23/2016 10: 48pm Neutrophils # (Auto) 4.50 x10^3/uL 2.00-7.50 03/23/2016 10:30pm 2016 10:48pm Lymphocytes # (Auto) 2.51 x10^3/uL 1.50-4.00 03/23/2016 10:30pm 2016 10:48pm Monocytes # (Auto) 0.56 x10^3/uL 0.20-0.80 03/23/2016 10:30pm 2016 10:48pm Eosinophils # (Auto) 0.05 x10^3/uL 0.04-0.40 03/23/2016 10:30pm 2016 10:48pm Basophils # (Auto) 0.05 x10^3/uL 0.02-0.10 03/23/2016 10:30pm 2016 10:48pm Sodium Level 141 mmol/L 137-145 03/23/2016 10:30pm 03/23/2016 11:02pm Potassium Level 3.7 mmol/L 3.5-5.1 03/23/2016 10:30pm 03/23/2016 11: 02pm Carbon Dioxide Level 29.4 mmol/L 03/23/2016 10:3003/23/2016 11 :02pm Anion Gap 12.3 mEq/L 8-16 03/23/2016 10:3003/23/2016 11:02pm Blood Urea Nitrogen 14 mg/dL 9-03/23/2016 10:3003/23/2016 11: 02pm Creatinine 1.08 mg/dl 0.66-1.25 03/23/2016 10:30pm 03/23/2016 11:02pm Est Glomerular Filtrat Rate mL/min 86.31 03/23/2016 10:302016 11:02pm GFR NORMALS: Stage I: GFR >90 Stage II GFR 60-89 Stage III GFR 30-60 Stage IV: GFR 15-29 Stage V: GFR <15 BUN/Creatinine Ratio 12.96 03/23/2016 10:30pm 03/23/2016 11:02pm Glucose Level 98 mg/dL 74-106 03/23/2016 10:30pm 03/23/2016 11:02pm Calculated Osmolality 292.0 mosm/kg 273-304 03/23/2016 10:30pm 2016 11:02pm Calcium Level 8.7 mg/dL 8.4-10.2 03/23/2016 10:30pm 03/23/2016 11:02pm Total Bilirubin 0.6 mg/dL 0.2-1.3 03/23/2016 10:30pm 03/23/2016 11: 02pm Aspartate Amino Transf (AST/SGOT) 12 U/L L 17-59 03/23/2016 10:30pm 11:02pm Alanine Aminotransferase (ALT/SGPT) 27 U/L 21-72 03/23/2016 10:30pm 11:02pm Alkaline Phosphatase 63 U/L 38-126 03/23/2016 10:30pm 03/23/2016 11: 02pm Total Protein 7.7 g/dL 6.4-8.4 03/23/2016 10:30pm 03/23/2016 11:02pm Albumin 4.4 g/dL 3.4-5.5 03/23/2016 10:30pm 03/23/2016 11:02pm Globulin 3.3 2.3-3.5 03/23/2016 10:30pm 03/23/2016 11:02pm Albumin/Globulin Ratio 1.333 03/23/2016 10:30pm 03/23/2016 11:02pm Influenza Type A (Rapid) NEGATIVE NEGATIVE 03/23/2016 10:30pm 2016 11:02pm Influenza Type B (Rapid) NEGATIVE NEGATIVE 03/23/2016 10:30pm 2016 11:02pm Pending Laboratory Results Test Name Collection Date/Time Procedures Procedure Status Date Provider(s) EMERGENCY DEPT VISIT Completed 03/23/16 THER/PROPH/DIAG INJ IV PUSH Completed 03/23/16 HYDRATE IV INFUSION ADD-ON Completed 03/23/16 Encounters Encounter Location Arrival/Admit Date Discharge/Depart Date Attending Provider Departed Emergency Room [facility] 07/31/16 11:06pm 08/01/16 1: 26am GRACE PATINO NP Departed Emergency Room [facility] 03/23/16 10:20pm 03/24/16 12: 28am NICHOLAS DOMINGO APRN Recent Diagnosis
--- OUTSIDE RECORDS SUMMARY | 2017-11-23 15:36 | XMS REPORT | Continuity of Care Document ---
Author Author [facility] Organization [facility] Address [address] [place] [address] Phone Unavailable Care Team Providers Care Junior Qa Analyst Name Role Phone ALICIA SNELL MD PCP Insurance Providers Payer Name Policy Number Subscriber Name Relationship Workers Compensation [id number] Funmilayo Moya 20 Employee Advance Directives Directive Response Recorded Date/Time Advance Directives No 09/19/15 3:23pm Advance Directive on File No 09/19/15 3:36pm Durable POA for HC No 09/19/15 3:36pm Power of Residential Mental Health Worker No 09/19/15 3:36pm Organ Donor No 09/19/15 3:36pm Living Will No 09/19/15 3:36pm Chief Complaint and Reason for Visit Chief Complaint Syncope Reason for Visit [id number] Heat exhaustion Problems Active Problems Medical Problem Onset Date Status Acute tonsillitis Unknown Acute Dehydration symptoms Unknown Acute Heat exhaustion Unknown Acute Pharyngitis, [...] Problem Response Recorded Date/Time Alcohol Use none 09/19/2015 5:57pm Drug Use none 09/19/2015 5:57pm Smoking Status Never smoker 09/19/2015 3:34pm Smoked in the last 12 months? No 09/19/2015 3:34pm Do you dip or chew tobacco? No 09/19/2015 3:34pm Approx how many cigs per day? 0 09/19/2015 3:34pm Level of Dependence Low 09/19/2015 3:34pm Former smoker, last day smoked? NEVER 09/19/2015 3:34pm Query Response Start Date Stop Date Smoking Status Never smoker Hospital Discharge Instructions No hospital discharge instructions. Plan of Care Discharge Date 09/19/15 6:30pm Disposition 01 D/C HOME Condition at Discharge Stable and Improved Instructions/Education Provided How to Stop Smoking (ED) Dehydration (ED) Heat Exhaustion (ED) Syncope (ED) Prescriptions See Medication Section Referrals ALICIA SNELL MD - Additional Instructions/Education Drink plenty of water Stay out of the heat for the next 72hours No strenuous activity for 72 hours Make a f/u appt with your PCP in 1-2 days Reference Links Functional Status Query Response Date Recorded Activities of Daily Living Performs w/o Assistance September 19, 2015 3:34pm Cognitive Function Intact September 19, 2015 3:34pm Allergies, Adverse Reactions, Alerts No known allergies. Immunizations No immunization records. Vital Signs Acute Vital Signs Vital Response Date/Time Temperature (Fahrenheit) 97.8 degrees F (97.6 - 99.5) 09/19/2015 6:00pm Temperature (Calculated Celsius) 36.16876 degrees C (36.4 - 37.5) 09/19/2015 6:00pm Temperature Source Temporal Artery Scan 09/19/2015 6:00pm Pulse Pulse Ox Pulse Rate (adult) 65 beats per minute (60 - 90) 09/19/2015 6:15pm Pulse Location Modifier Left 09/19/2015 6:15pm Oxygen Saturation Respiratory Rate 16 breaths per minute (12 - 24) 09/19/2015 6:15pm O2 Sat by Pulse Oximetry 100 % (90 - 100) 09/19/2015 6:15pm Blood Pressure 129/80 mm Hg 09/19/2015 6:15pm Blood Pressure Mean 96 mm Hg 09/19/2015 6:15pm Height 5 ft 10 in Weight 215 lb Body Mass Index 30.8 kg/m^2 Results Laboratory Results Test Name Result [...] Neutrophils # (Auto) 3.93 x10^3/uL 2.00-7.50 09/19/2015 4:2015 4:44pm Lymphocytes # (Auto) 1.87 x10^3/uL 1.50-4.00 09/19/2015 4:2015 4:44pm Monocytes # (Auto) 0.64 x10^3/uL 0.20-0.80 09/19/2015 4:pm 2015 4:44pm Eosinophils # (Auto) 0.11 x10^3/uL 0.04-0.40 09/19/2015 4:pm 2015 4:44pm Basophils # (Auto) 0.03 x10^3/uL 0.02-0.10 09/19/2015 4:2015 4:44pm Volume Urine Centrifuged 12 ml 09/19/2015 5:09/19/2015 5:40pm Test based ON 12 ml volume. Urine Color STRAW STRAW 09/19/2015 5:09/19/2015 5:40pm Urine Clarity CLEAR CLEAR 09/19/2015 5:09/19/2015 5:40pm Urine Specific [place] 1.020 1.010-1.020 09/19/2015 5:2015 5:40pm Urine pH 6.5 A 5.0-6.0 09/19/2015 5:09/19/2015 5:40pm Urine Leukocyte Esterase NEGATIVE NEGATIVE 09/19/2015 5:2015 5:40pm Urine Nitrite NEGATIVE NEGATIVE 09/19/2015 5:09/19/2015 5:40pm Urine Protein NEGATIVE NEGATIVE 09/19/2015 5:pm 09/19/2015 5:40pm Urine Glucose (UA) NEGATIVE NEGATIVE 09/19/2015 5:pm 09/19/2015 5: 40pm Urine Ketones NEGATIVE NEGATIVE 09/19/2015 [...] 4:09/19/2015 4: 46pm Anion Gap 15.7 mEq/L 10-0709/19/2015 4:09/19/2015 4:46pm Blood Urea Nitrogen 15 mg/dL 11-1109/19/2015 4:09/19/2015 4:46pm Creatinine 1.08 mg/dl 0.66-1.25 09/19/2015 4:09/19/2015 4:46pm Est Glomerular Filtrat Rate mL/min 87.17 09/19/2015 4:2015 4:43pm GFR NORMALS: Stage I: GFR >90 Stage II GFR 60-89 Stage III GFR 30-60 Stage IV: GFR 15-29 Stage V: GFR <15 BUN/Creatinine Ratio 13.88 09/19/2015 4:09/19/2015 4:46pm Glucose Level 95 mg/dL 74-106 09/19/2015 4:09/19/2015 4:46pm Calculated Osmolality 290.3 mosm/kg 273-304 09/19/2015 4:2015 4:46pm Calcium Level 9.0 mg/dL 8.4-10.2 09/19/2015 4:09/19/2015 4:46pm Total Bilirubin 0.5 mg/dL 0.2-1.3 09/19/2015 4:09/19/2015 4:46pm Aspartate Amino Transf (AST/SGOT) 17 U/L 17-59 09/19/2015 4:2015 4:46pm Alanine Aminotransferase (ALT/SGPT) 41 U/L 21-72 09/19/2015 4: 4:46pm Alkaline Phosphatase 66 U/L 38-126 09/19/2015 4:09/19/2015 4:46pm Total Creatine Kinase 271 U/L H 55-170 09/19/2015 5:09/19/2015 5: 25pm Troponin < 0.05 mg/mL 0-0.056 09/19/2015 5:09/19/2015 5:25pm Creatine Kinase MB 1.5 ng/mL 0-3.6 09/19/2015 5:09/19/2015 5:25pm Total Protein 6.7 g/dL 6.4-8.4 09/19/2015 4:09/19/2015 4:46pm Albumin 3.9 g/dL 3.4-5.5 09/19/2015 4:09/19/2015 4:46pm Globulin 2.8 2.3-3.5 09/19/2015 4:09/19/2015 4:46pm Albumin/Globulin Ratio 1.392 09/19/2015 4:09/19/2015 4:46pm Procedures No known history of procedures. Encounters Encounter Location Arrival/Admit Date Discharge/Depart Date Attending Provider Departed Emergency Room [facility] 09/19/15 2:45pm 09/19/15 6: 30pm ARIEL ROGERS Recent Diagnosis
--- OUTSIDE RECORDS SUMMARY | 2017-11-23 15:36 | XMS REPORT | Continuity of Care Document ---
Author Author [facility] Organization [facility] Address [address] [place] [address] Phone Unavailable Care Team Providers Care Helminthologist Name Role Phone ALICIA SNELL MD PCP Insurance Providers Payer Name Policy Number Subscriber Name Relationship [employer] [id number] Funmilayo Moya 18 Self / Same As Patient Advance Directives Directive Response Recorded Date/Time Advance Directives No 09/19/15 3:23pm Advance Directive on File No 03/23/16 10:31pm Durable POA for HC No 03/23/16 10:31pm Power of Laboratory Asst No 03/23/16 10:31pm Organ Donor No 03/23/16 10:31pm Living Will No 03/23/16 10:31pm Chief Complaint and Reason for Visit Chief Complaint General Complaint Reason for Visit [id number] Headache Syncope Problems Active Problems Medical Problem Onset [...] Hours As Needed as needed for Headache 20 03/24/16 Past Home Medications Medication Directions Ordered [...] Response Recorded Date/Time Smoking Status Never smoker 03/23/2016 10:32pm Smoked in the last 12 months? No 03/23/2016 10:32pm Do you dip or chew tobacco? No 03/23/2016 10:32pm Approx how many cigs per day? 0 03/23/2016 10:32pm Level of Dependence Low 03/23/2016 10:32pm Former smoker, last day smoked? Never 03/23/2016 10:32pm Query Response Start Date Stop Date Smoking Status Never smoker Hospital Discharge Instructions No hospital discharge instructions. Plan of Care Discharge Date 03/24/16 12:28am Disposition 01 D/C HOME Condition at Discharge Stable and Improved Instructions/Education Provided Viral Syndrome (ED) Forms Provided ER Discharge Phone Call Check Prescriptions See Medication Section Referrals ALICIA SNELL MD - Additional Instructions/Education Home to rest Drink plenty of fluids Follow up with PCP Sofya as prescribed Functional Status Query Response Date Recorded Activities of Daily Living Performs w/o Assistance March 23, 2016 10:32pm Cognitive Function Intact March 23, 2016 10:32pm Allergies, Adverse Reactions, Alerts No known allergies. Immunizations No immunization records. Vital Signs Acute Vital Signs Vital Response Date/Time Temperature (Fahrenheit) 97.6 degrees F (97.6 - 99.5) 03/24/2016 12:15am Temperature (Calculated Celsius) 36.05299 degrees C (36.4 - 37.5) 03/24/2016 12:15am Temperature Source Temporal Artery Scan 03/24/2016 12:15am Pulse Pulse Ox Pulse Rate (adult) 68 beats per minute (60 - 90) 03/24/2016 12:15am Pulse Location Modifier Right 09/20/2015 2:28am Oxygen Saturation Respiratory Rate 16 breaths per minute (12 - 24) 03/24/2016 12:15am O2 Sat by Pulse Oximetry 99 % (90 - 100) 03/24/2016 12:15am Blood Pressure 113/54 mm Hg 03/24/2016 12:15am Blood Pressure Mean 73 mm Hg 03/24/2016 12:15am Height 6 ft 1 in Weight 275 lb Body Mass Index 36.3 kg/m^2 Results Laboratory Results Test Name Result Units Flags Reference Collection Date/Time Result Date/ Time Comments White Blood Count 6.6 x10^3/uL 4.0-11.0 09/19/2015 4:pm 09/19/2015 4: 44pm Red Blood Count 4.69 10^6/uL [...] Eosinophils # (Auto) 0.11 x10^3/uL 0.04-0.40 09/19/2015 4:2015 4:44pm Basophils # (Auto) 0.03 x10^3/uL 0.02-0.10 09/19/2015 4:pm 2015 4:44pm Volume Urine Centrifuged 12 ml 09/19/2015 5:09/19/2015 5:40pm Test based ON 12 ml volume. Urine Color STRAW STRAW 09/19/2015 5:09/19/2015 5:40pm Urine Clarity CLEAR CLEAR 09/19/2015 5:09/19/2015 5:40pm Urine Specific [place] 1.020 1.010-1.020 09/19/2015 5:2015 5:40pm Urine pH 6.5 A 5.0-6.0 09/19/2015 5:09/19/2015 5:40pm Urine Leukocyte Esterase NEGATIVE NEGATIVE 09/19/2015 5:2015 5:40pm Urine Nitrite NEGATIVE NEGATIVE 09/19/2015 5:pm 09/19/2015 5:40pm Urine Protein NEGATIVE NEGATIVE 09/19/2015 5:pm [...] 4:46pm Albumin/Globulin Ratio 1.392 09/19/2015 4:09/19/2015 4:46pm Pending Laboratory Results Test Name Collection Date/Time Procedures Procedure Status Date Provider(s) ROUTINE VENIPUNCTURE Completed 09/19/15 COMPREHEN METABOLIC PANEL Completed 09/19/15 URINALYSIS NONAUTO W/SCOPE Completed 09/19/15 ASSAY OF CK (CPK) Completed 09/19/15 CREATINE MB FRACTION Completed 09/19/15 ASSAY OF TROPONIN QUAL Completed 09/19/15 COMPLETE CBC W/AUTO DIFF WBC Completed 09/19/15 EMERGENCY DEPT VISIT Completed 09/19/15 INJECTION, KETOROLAC TROMETHAMINE, PER 15 MG Completed INJECTION, MORPHINE SULFATE, UP TO 10 MG Completed RINGERS LACTATE INFUSION, UP TO 1000 CC Completed EMERGENCY DEPT VISIT Completed 09/19/15 THER/PROPH/DIAG INJ IV PUSH Completed 09/19/15 TX/PRO/DX INJ NEW DRUG ADDON Completed 09/19/15 HYDRATE IV INFUSION ADD-ON Completed 09/19/15 HYDRATE IV INFUSION ADD-ON Completed 09/19/15 HYDRATE IV INFUSION ADD-ON Completed 09/19/15 ELECTROCARDIOGRAM TRACING Completed 09/20/15 EMERGENCY DEPT VISIT Completed 09/20/15 EMERGENCY DEPT VISIT Completed 09/20/15 INJECTION, ONDANSETRON HYDROCHLORIDE, PER 1 MG Completed INFUSION, NORMAL SALINE SOLUTION , 1000 CC Completed Encounters Encounter Location Arrival/Admit Date Discharge/Depart Date Attending Provider Departed Emergency Room [facility] 03/23/16 10:20pm 03/24/16 12: 28am NICHOLAS DOMINGO APRN Departed Emergency Room [facility] 09/20/15 1:50am 09/20/15 2: 30am ARIEL ROGERS Departed Emergency Room [facility] 09/19/15 2:45pm 09/19/15 6: 30pm ARIEL ROGERS Recent Diagnosis
--- OUTSIDE RECORDS SUMMARY | 2017-11-23 15:36 | XMS REPORT | Continuity of Care Document ---
Author Author [facility] Organization [facility] Address Unknown Phone Unavailable Allergies Active Description Code Type Severity Reaction Onset Reported/Identified Relationship to Patient Clinical Status Yes No Known Drug Allergies [id number] ND N/A N/A Yes No Known Allergies [id number] Drug Allergy Unknown N/A 09/20/2015 Yes No Known Allergies NKA Miscellaneous Allergy Unknown N/A 10/16/2015 Yes No Known Allergies No Known Allergies Drug Allergy Unknown N/A 2016 Medications There is no data. Problems Date Dx Coded Attending Type Code Diagnosis Diagnosed By 09/22/2014 Other 276.51 DEHYDRATION 09/22/2014 Other 462 ACUTE PHARYNGITIS 09/22/2014 Other 463 ACUTE TONSILLITIS 09/22/2014 Other 789.04 ABDOMINAL PAIN, LEFT LOWER QUADRANT 09/22/2014 Other E86.0 DEHYDRATION 09/22/2014 Other J02.9 ACUTE PHARYNGITIS, UNSPECIFIED 09/22/2014 Other J03.90 ACUTE TONSILLITIS, UNSPECIFIED 09/22/2014 Other R10.32 LEFT LOWER QUADRANT PAIN 09/19/2015 Other E86.0 DEHYDRATION 09/19/2015 Other R51 HEADACHE 09/19/2015 Other R55 SYNCOPE AND COLLAPSE 09/19/2015 Other T67.5XXA HEAT EXHAUSTION, UNSPECIFIED, INITIAL ENCOUNTER 09/19/2015 Other X32.XXXA EXPOSURE TO SUNLIGHT, INITIAL ENCOUNTER 09/19/2015 Other Y92.34 SWIMMING POOL (PUBLIC) PLACE 09/19/2015 Other Y93.11 ACTIVITY , SWIMMING 09/20/2015 Other R11.2 NAUSEA WITH VOMITING, UNSPECIFIED 09/20/2015 Other R51 HEADACHE 09/20/2015 Other R55 SYNCOPE AND COLLAPSE 10/16/2015 Renato Nicholas R51 HEADACHE 10/16/2015 Renato Nicholas R53.1 WEAKNESS 10/16/2015 Renato Nicholas R53.81 OTHER MALAISE 10/16/2015 Renato Nicholas R74.8 ABNORMAL LEVELS OF OTHER SERUM ENZYMES 03/24/2016 NICHOLAS DOMINGO APRN Other M79.1 MYALGIA 03/24/2016 NICHOLAS DOMINGO APRN Other R05 COUGH 03/24/2016 NICHOLAS DOMINGO APRN Other R07.9 CHEST PAIN, UNSPECIFIED 03/24/2016 NICHOLAS DOMINGO APRN Other R50.9 FEVER, UNSPECIFIED 03/24/2016 NICHOLAS DOMINGO APRN Other R51 HEADACHE 03/24/2016 NICHOLAS DOMINGO APRN Other R53.1 WEAKNESS 03/24/2016 NICHOLAS DOMINGO APRN Other R55 SYNCOPE AND COLLAPSE 08/01/2016 CAREY CHANDLER, GRACE Araya Other E86.0 DEHYDRATION 08/01/2016 CAREY CHANDLER, GRACE Araya Other R11.2 NAUSEA WITH VOMITING, UNSPECIFIED 08/01/2016 GRACE PATINO NP Other R42 DIZZINESS AND GIDDINESS 08/01/2016 CAREY CHANDLER, GRACE Araya Other R51 HEADACHE 12/02/2016 Quiana Lerner MD R42 Dizziness 12/02/2016 Quiana Lerner MD R51 Headache 12/21/2016 Yann CELIS, Quiana Kerr F33.9 Depression, acute, recurrent Procedures There is no data. Results Test Result Range COMPLETE BLOOD CT w AutoDiff - 10/16/15 07:14 WHITE BLOOD COUNT 7.8 K/mm3 4.8-10.8 RED BLOOD COUNT 4.72 M/mm3 4.20-5.60 HEMOGLOBIN 14.4 g/dl 12.5-16.1 HEMATOCRIT 42.2 % 36.0-47.0 MEAN CORPUSCULAR VOLUME 89 fl 80.0-95.0 MEAN CORPUSCULAR HEMOGLOBIN 31 pg 26.0-32.0 MEAN CORPUSCULAR HGB CONC 34 g/dl 33.0-37.0 PLATELET COUNT 256 K/mm3 130-400 MEAN PLATELET VOLUME 9.9 fl 7.4-10.4 LYMPHOCYTES % (AUTO) 19.9 % 20.0-51.0 MONOCYTES % (AUTO) 6.9 % 1.7-9.3 EOSINOPHILS % (AUTO) 0.5 % 0-4.0 BASOPHILS % (AUTO) 0.4 % 0.0-2.0 LYMPHOCYTES # (AUTO) 1.6 1.2-3.4 MONOCYTES # (AUTO) 0.5 0.1-0.6 EOSINOPHILS # (AUTO) 0.0 0.0-0.7 BASOPHILS # (AUTO) 0.0 0.0-0.2 GRAN # 5.6 1.4-6.5 GRAN % 72.0 % 42.2-75.2 REDCELL DISTRIBUTION WIDTH-CV 12.5 % 11.5-14.5 ACETONE,SERUM - 10/16/15 07:14 ACETONE VOLATILES NEGATIVE CREATINE KINASE - 10/16/15 07:14 CREATINE KINASE 861 U/L 55-170 COMPREHENSIVE METABOLIC PANEL - 10/16/15 07:14 SODIUM 143 mmol/L 137-145 POTASSIUM 3.8 mmol/L 3.4-5.0 CHLORIDE 103 mmol/L 98-107 CARBON DIOXIDE 26 mmol/L 22-30 ANION GAP 14 mmol/L 7-16 BLOOD UREA NITROGEN 12 mg/dL 9-20 GLUCOSE 100 mg/dL 74-106 CALCIUM 9.4 mg/dL 8.4-10.2 BILIRUBIN,TOTAL 0.6 mg/dL 0.0-1.0 ALKALINE PHOSPHATASE 56 U/L 50-136 ASPARTATE AMINO TRANSFERASE 46 U/L 15-37 ALANINE AMINOTRANSFERASE 51 U/L 21-72 TOTAL PROTEIN 7.3 gm/dL 6.4-8.2 ALBUMIN 4.4 gm/dL 3.5-5.0 CREATININE, serum 0.78 mg/dL 0.66-1.25 ADJUSTED CALCIUM 9.1 mg/dL 8.4-10.2 eGFR 154 eGFR non 127 CBC W/DIFF - 07/14/16 23:11 BASOPHIL # 0.0 k/cumm 0.0-0.2 BASOPHIL % 1 % 0-1 EOSINOPHIL # 0.1 k/cumm 0.1-0.5 EOSINOPHIL % 2 % 2-4 GRANULOCYTE # 5.1 k/cumm 2.0-9.0 GRANULOCYTE % 61 % 50-75 LYMPHOCYTE # 2.5 k/cumm 1.0-4.0 LYMPHOCYTE % 30 % 20-30 MEAN CELL HGB 30.9 pg 27.0-33.0 MEAN CELL HGB CONCENTRATION 34.7 g/dL 32.0-37.0 MEAN CELL VOLUME 89.2 fl 80.0-100.0 MONOCYTE # 0.5 k/cumm 0.1-1.0 MONOCYTE % 6 % 4-6 RED BLOOD CELL 5.27 m/cumm 4.00-6.00 RED CELL DISTRIBUTION WIDTH 12.5 % 11.0-15.6 WHITE BLOOD CELL 8.3 k/cumm 5.0-10.0 HEMOGLOBIN 16.3 gm/dL 14.0-18.0 HEMATOCRIT 47.0 % 40.0-54.0 PLATELET COUNT 274 k/cumm 150-400 CHEM/HEM PROFILE-BEDSIDE - 07/14/16 23:13 POTASSIUM 4.2 mmol/L 3.5-5.3 METHOD Bedside ANION GAP 16 mmol/L 10-20 METHOD Bedside GLUCOSE 84 mg/dL 70-99 BLOOD UREA NITROGEN 9 mg/dL 7-20 CREATININE 0.9 mg/dL 0.7-1.3 HEMOGLOBIN 17.0 gm/dL 14.0-18.0 HEMATOCRIT 50.0 % 40.0-54.0 SODIUM 141 mmol/L 135-148 CHLORIDE 102 mmol/L 98-110 CARBON DIOXIDE 28 mmol/L 21-32 CALCIUM IONIZED 4.6 mg/dL 4.5-5.3 URINALYSIS, ROUTINE - 07/15/16 00:12 UA LEUKOCYTE ESTERASE DIPSTICK NEGATIVE NEGATIVE UA NITRITE DIPSTICK NEGATIVE NEGATIVE UA PROTEIN DIPSTICK 1+ NEGATIVE UA GLUCOSE DIPSTICK NEGATIVE NEGATIVE UA KETONE DIPSTICK NEGATIVE NEGATIVE UA UROBILINOGEN DIPSTICK NORMAL NORMAL UA BILIRUBIN DIPSTICK NEGATIVE NEGATIVE UA BLOOD DIPSTICK NEGATIVE NEGATIVE UA SPECIFIC GRAVITY >=1.030 1.015-1.025 UR PH 5.5 5.0-7.0 UA MICROSCOPIC - 07/15/16 00:12 UA EPITHELIAL CELLS 1+ epi/hpf 0 - 1+ UA MUCUS 1+ NEG TO 1+ UA RBC 3-5 rbc/hpf 0 - 3 UA SPERM PRESENT UA VOLUME FOR EXAM 12.0 mL (12mL STD) UA WBC 0 wbc/hpf 0 - 5 Encounters ACCT No. Visit Date/Time Discharge Status Pt. Type Provider Facility Loc./Unit Complaint [id number] 12/02/2016 09:50:01 ACT Unknown Quiana Lerner MD [id number] 08/04/2016 22:34:06 ACT Document Registration [id number] 07/14/2016 21:44:00 07/15/2016 02:10:00 DIS Emergency Alejandro CELIS, Usama [facility] W.HGUO [id number] 10/16/2015 07:02:00 10/16/2015 11:29:00 DIS Emergency Renato Nicholas [facility] COL.ER [id number] 03/12/2017 16:20:00 03/12/2017 23:59:59 CLS Outpatient SALMA HERNANDEZ [facility] [id number] 07/15/2015 13:48:00 07/15/2015 17:00:00 DIS Emergency ANDERSON ISAAC [facility] EMR [id number] 07/31/2016 23:06:00 08/01/2016 01:26:00 DIS Emergency CAREY CAR BODY DESIGNER, GRACE Araya [facility] L FLANK PAIN [id number] 03/23/2016 22:20:00 03/24/2016 00:28:00 DIS Emergency NICHOLAS DOMINGO APRN [facility] WEAKNESS [id number] 09/20/2015 01:50:00 Document Registration [id number] 09/19/2015 14:45:00 Document Registration [id number] 09/22/2014 03:25:00 Document Registration
[2017-11-23 17:26] LABS: BASOPHILS % (AUTO) 0 % (0-10); EOSINOPHILS % (AUTO) 0 % (0-10); HEMATOCRIT 46 % (40-54); HEMOGLOBIN 16.1 G/DL (13.3-17.7); LYMPHOCYTES # (AUTO) 1.9 X 10^3 (1.0-4.0); LYMPHOCYTES % (AUTO) 21 % (12-44); MEAN CORPUSCULAR HEMOGLOBIN 30 PG (25-34); MEAN CORPUSCULAR HGB CONC 35 G/DL (32-36); MEAN CORPUSCULAR VOLUME 87 FL (80-99); MEAN PLATELET VOLUME 10.3 FL (7.4-10.4); MONOCYTES # (AUTO) 0.8 X 10^3 (0.0-1.0); MONOCYTES % (AUTO) 9 % (0-12); NEUTROPHILS # (AUTO) 6.1 X 10^3 (1.8-7.8); NEUTROPHILS % (AUTO) 70 % (42-75); PLATELET COUNT 294 10^3/uL (130-400); RED BLOOD COUNT 5.32 10^6/uL (4.35-5.85); RED CELL DISTRIBUTION WIDTH 13.2 % (10.0-14.5); WHITE BLOOD COUNT 8.8 10^3/uL (4.3-11.0)
[2017-11-23] MEDS ORDERED: LACTATED RINGERS 1,000 ML IV ONE (17:29)
[2017-11-23] MEDS ORDERED: ONDANSETRON 4 MG/2 ML (SDV) Z0FRAN IVP ONE ×2 (17:30→18:15)
--- NOTE | 2017-11-23 17:32 | ED General ---
General Chief Complaint: Dizziness/Syncope Stated Complaint: WEKK,DIZZY,PASSED OUT BRIEF MOMENT Nursing Triage Note: ARRIVED VIA AMB TO TRIAGE. STATES HE HAS NOT FELT WELL X 1.5 WEEKS AND EVERYBODY AT HIS WORK IS SICK. TODAY BECAME DIZZY AND STATES HE FEELS LIKE HE WANT TO PASS OUT. Nursing Sepsis Screen: No Definite Risk Source of Information: Patient History of Present Illness Date Seen by Provider: Nov 23, 2017 Time Seen by Provider: 17:18 Initial Comments PT ARRIVES VIA POV FROM HOME STATES HE HAS BEEN DIZZY/LIGHTHEADED TODAY AND HAS BEEN VERY WEAK AND ALMOST PASSED OUT AT WORK TODAY--HAD ONLY BEEN AT WORK ABOUT 10 MINUTES, AND HAD TO LEAVE, AND STATES FRIEND HAD TO HELP HIM TO THE CAR AND HAD TO STOP A FEW TIMES ON THE WAY TO THE CAR BECAUSE HE WAS SO WEAK. STATES HE HAS BEEN "SICK" FOR 1 1/2 WEEKS, AND GETTING WORSE STATES HE HAS BEEN FEELING VERY WEAK AND HAVING HEADACHES FOR THE LAST 1 1/2 WEEKS HAS HAD NAUSEA FOR A COUPLE OF HOURS, AND DIARRHEA FOR THE LAST MONTH, WORSE X 1 WEEK--HAS BEEN HAVING 10-12 STOOLS A DAY AND STOOLS ARE OFTEN BLOODY C/O GENERALIZED ABDOMINAL PAIN NO FEVER NO COUGH OR URI SYMPTOMS NO SORE THROAT HAS BEEN HAVING CHEST PAINS FOR 3 DAYS--HAS A LITTLE CHEST PAIN NOW NO SHORTNESS OF BREATH NO PROBLEMS URINATING TOOK IBUPROFEN TODAY AT 1500 HAS CONTINUED TO EAT REGULARLY, AND LAST FOOD INTAKE WAS [place] AT 1500, RIGHT BEFORE HE CAME HERE. HAS NOT SOUGHT CARE AT ANY TIME UNTIL TODAY PCP: NONE Allergies and Home Medications Allergies Coded Allergies: No Known Drug Allergies (Unverified , 11/23/17) Home Medications Lactobacillus Acidophilus 1 Each Capsule, 2 EACH PO QID Prescribed by: NABILA CHEN on 11/23/171936 Ondansetron 8 Mg Tab.rapdis, 8 MG PO Q4H Prescribed by: NABILA CHEN on 11/23/171936 Promethazine HCl 25 Mg Supp.rect, 25 MG RC Q4H Prescribed by: NABILA CHEN on 11/23/171936 Patient Home Medication List Home Medication List Reviewed: Yes Review of Systems Review of Systems Constitutional: see HPI, dizziness, malaise EENTM: no symptoms reported Respiratory: no symptoms reported; No cough, No dyspnea on exertion, No short of breath, No wheezing Cardiovascular: see HPI, chest pain; No edema, No palpitations, No syncope, No vascular heart diseas Gastrointestinal: see HPI, abdominal pain, diarrhea; No loss of appetite; nausea; No vomiting Genitourinary: no symptoms reported Musculoskeletal: no symptoms reported Psychiatric/Neurological: See HPI, Headache; Denies Numbness, Denies Paresthesia, Denies Seizure Hematologic/Lymphatic: No Symptoms Reported Immunological/Allergic: no symptoms reported Past Ziochsp-Nkdcss-Ifkmeh Hx Patient Social History Alcohol Use: Denies Use Recreational Drug Use: No Smoking Status: Never a Smoker Recent Foreign Travel: No Contact w/Someone Who Travel: No Recent Infectious Disease Expo: No Recent Hopitalizations: No Past Medical History Surgeries: Yes (LEFT CLAVICLE FX/ORIF; URETERAL STENT FOR STONE) Orthopedic, Renal Respiratory: No Cardiac: No Neurological: Yes ("HEAT STROKE" PER PT) Genitourinary: Yes Kidney Stones Gastrointestinal: No Musculoskeletal: No Endocrine: No HEENT: No Cancer: No Psychosocial: No Integumentary: No Blood Disorders: No Physical Exam Vital Signs Vital Signs - First Documented 11/23/17 16:25 Temp 98.0 Pulse 81 Resp 16 B/P (MAP) 150/75 (100) Pulse Ox 97 O2 Delivery Room Air Capillary Refill : Less Than 3 Seconds Height, Weight, BMI Height: 5'10.00" Weight: 270lbs. oz. 122.248176yg; BMI Method:Stated General Appearance: No Apparent Distress, Obese, Other (MILDLY LETHARGIC) HEENT: PERRL/EOMI, TMs Normal, Normal ENT Inspection, Pharynx Normal Neck: Full Range of Motion, Normal Inspection, Non Tender, Supple Respiratory: Normal Breath Sounds, No Accessory Muscle Use, No Respiratory Distress Cardiovascular: Regular Rate, Rhythm, No Edema, No JVD, No Murmur, Normal Peripheral Pulses Gastrointestinal: Normal Bowel Sounds, No Organomegaly, No Pulsatile Mass, Soft ; No Distended, No Guarding, No Hernia, No Mass, No Rebound; Tenderness (DIFFUSE ) Back: Normal Inspection, No CVA Tenderness, No Vertebral Tenderness Extremity: Normal Capillary Refill, Normal Inspection, Normal Range of Motion, Non Tender, No Calf Tenderness, No Pedal Edema Neurologic/Psychiatric: Alert, Oriented x3, No Motor/Sensory Deficits, Normal 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8 4.3-11.0 10^3/uL Red Blood Count 5.32 4.35-5.85 10^6/uL Hemoglobin 16.1 13.3-17.7 G/DL Hematocrit 46 40-54 % Mean Corpuscular Volume 87 80-99 FL Mean Corpuscular Hemoglobin 30 25-34 PG Mean Corpuscular Hemoglobin Concent 35 32-36 G/DL Red Cell Distribution Width 13.2 10.0-14.5 % Platelet Count 294 130-400 10^3/uL Mean Platelet Volume 10.3 7.4-10.4 FL Neutrophils (%) (Auto) 70 42-75 % Lymphocytes (%) (Auto) 21 12-44 % Monocytes (%) (Auto) 9 0-12 % Eosinophils (%) (Auto) 0 0-10 % Basophils (%) (Auto) 0 0-10 % Neutrophils # (Auto) 6.1 1.8-7.8 X 10^3 Lymphocytes # (Auto) 1.9 1.0-4.0 X 10^3 Monocytes # (Auto) 0.8 0.0-1.0 X 10^3 Eosinophils # (Auto) 0.0 0.0-0.3 10^3/uL Basophils # (Auto) 0.0 0.0-0.1 10^3/uL Prothrombin Time 13.8 12.2-14.7 SEC INR Comment 1.1 0.8-1.4 Activated Partial Thromboplast Time 28 24-35 SEC Sodium Level 143 135-145 MMOL/L Potassium Level 4.0 3.6-5.0 MMOL/L Chloride Level 104 98-107 MMOL/L Carbon Dioxide Level 27 21-32 MMOL/L Anion Gap 12 5-14 MMOL/L Blood Urea Nitrogen 13 7-18 MG/DL Creatinine 1.13 0.60-1.30 MG/DL Estimat Glomerular Filtration Rate > 60 BUN/Creatinine Ratio 12 Glucose Level 101 70-105 MG/DL Calcium Level 10.2 H 8.5-10.1 MG/DL Corrected Calcium 8.5-10.1 MG/DL Magnesium Level 2.4 1.8-2.4 MG/DL Total Bilirubin 1.1 H 0.1-1.0 MG/DL Aspartate Amino Transf (AST/SGOT) 20 5-34 U/L Alanine Aminotransferase (ALT/SGPT) 29 0-55 U/L Alkaline Phosphatase 60 40-136 U/L Total Protein 8.3 H 6.4-8.2 GM/DL Albumin 5.1 H 3.2-4.5 GM/DL TSH Rotan Testing 2.26 0.35-4.94 UIU/ML Serum Alcohol < 10 <10 MG/DL My Orders Orders - NABILA CHEN K DO Accucheck Stat ONCE (11/23/17 17:18) Saline Lock/Iv-Start (11/23/17 17:18) Ekg Tracing (11/23/17 17:18) Monitor-Rhythm Ecg Trace Only (11/23/17 17:18) Orthostatic Vital Signs (Adult (11/23/17 17:18) Alcohol (11/23/17 17:18) Cbc With Automated Diff (11/23/17 17:18) Comprehensive Metabolic Panel (11/23/17 17:18) Drug Screen Stat (Urine) (11/23/17 17:18) Magnesium (11/23/17 17:18) Protime With Inr (11/23/17 17:18) Partial Thromboplastin Time (11/23/17 17:18) Thyroid Analyzer (11/23/17 17:18) Ua Culture If Indicated (11/23/17 17:18) Saline Lock/Iv-Start (11/23/17 17:18) Ondansetron Injection (Zofran Injectio (11/23/17 17:30) Saline Lock/Iv-Start (11/23/17 17:29) Lactated Ringers (Lr 1000 Ml Iv Solution (11/23/17 17:29) Ct Abdomen/Pelvis W (11/23/17 17:50) Ct Head Wo (11/23/17 17:50) Iohexol Injection (Omnipaque 350 Mg/Ml 1 (11/23/17 18:00) Ns (Ivpb) (Sodium Chloride 0.9%) (11/23/17 18:00) Ondansetron Injection (Zofran Injectio (11/23/17 18:15) Promethazine Injection (Phenergan Injec (11/23/17 18:30) Diphenhydramine Injection (Benadryl Inje (11/23/17 18:30) Diphenhydramine Injection (Benadryl Inje (11/23/17 18:35) Promethazine Injection (Phenergan Injec (11/23/17 18:35) Saline Lock/Iv-Start (11/23/17 18:52) Medications Given in ED Current Medications Medications Dose Ordered Sig/Fox Route Start Time Stop Time Status Last Admin Dose Admin Diphenhydramine HCl 25 mg ONCE ONCE IVP 11/23/17 18:30 11/23/17 18:38 DC 11/23/17 18:41 25 MG Iohexol 100 ml ONCE ONCE IV 11/23/17 18:00 11/23/17 18:10 DC 11/23/17 18:15 100 ML Lactated Ringer's 1,000 ml @ 0 mls/hr Q0M ONCE IV 11/23/17 17:29 11/23/17 17:31 DC 11/23/17 17:49 1,000 MLS/HR Ondansetron HCl 4 mg ONCE ONCE IVP 11/23/17 17:30 11/23/17 17:31 DC 11/23/17 17:49 4 MG Ondansetron HCl 8 mg ONCE ONCE IVP 11/23/17 18:15 11/23/17 18:16 DC 11/23/17 18:07 8 MG Promethazine HCl 25 mg ONCE ONCE IVP 11/23/17 18:30 11/23/17 18:39 DC 11/23/17 18:41 25 MG Sodium Chloride 250 ml ONCE ONCE IV 11/23/17 18:00 11/23/17 18:10 DC 11/23/17 18:15 80 ML Vital Signs/I&O 11/23/17 16:25 Temp 98.0 Pulse 81 Resp 16 B/P (MAP) 150/75 (100) Pulse Ox 97 O2 Delivery Room Air Capillary Refill : Less Than 3 Seconds Blood Pressure Mean: 100 Progress Note : Progress Note BEGAN VOMITING/ DRY HEAVING --ZOFRAN GIVEN WITHOUT RELIEF. THEN GIVEN PHENERGAN + BENADRYL WITH MUCH IMPROVEMENT NO DIARRHEA DURING ER STAY PT DID NOT HAVE ANY OTHER COMPLAINTS OF ABDOMINAL PAIN, OR HEADACHE OR DIZZINESS DURING ER STAY PT VOIDED BEFORE HE HAD EVEN RECEIVED A FULL LITER OF FLUIDS ECG Initial ECG Impression Date: Nov 23, 2017 Initial ECG Impression Time: 17:51 Initial ECG Rate: 57 Initial ECG Rhythm: Normal Sinus Initial ECG Comparisson: No Previous ECG Available Diagnostic Imaging Comments CT HEAD--NO ACUTE PROCESS, CALCIFICATION IN INDY CT ABDOMEN/PELVIS--HEPATIC STEATOSIS, MULTIPLE SMALL MESENTERIC AND RETROPERITONEAL NODES--POSSIBLE MESENTERIC ADENITIS PER RADIOLOGIST REPORTS AT 1854 Reviewed: Reviewed by Me Departure Impression Primary Impression: Acute gastroenteritis Additional Impressions: Generalized weakness Mesenteric lymphadenitis Disposition: 01 HOME, SELF-CARE Condition: Improved Departure-Patient Inst. Patient Instructions: Mesenteric Lymphadenitis (DC), Viral Gastroenteritis, Adult (DC) Add. Discharge Instructions: CLEAR LIQUIDS--WATER, BROTH, JELLO, GATORADE BRATS DIET--BANANAS, RICE, APPLESAUCE, TOAST, SALTINES FOLLOW UP WITH OF [facility] IN 2-3 DAYS FOR FURTHER CARE RETURN TO ER IF WORSE All discharge instructions reviewed with patient and/or family. Voiced understanding. Scripts Lactobacillus Acidophilus (Acidophilus) 1 Each Capsule 2 EACH PO QID, #80 CAP Prov: NABILA CHEN DO 11/23/17 Ondansetron (Zofran Odt) 8 Mg Tab.rapdis 8 MG PO Q4H for Nausea/Vomiting, #14 TAB Prov: NABILA CHEN DO 11/23/17 Promethazine HCl (Phenergan) 25 Mg Supp.rect 25 MG RC Q4H for Nausea/Vomiting, #10 SUPP.RECT Prov: NABILA CHEN DO 11/23/17 NABILA CHEN DO Nov 23, 2017 17:32
[2017-11-23 17:33] LABS: INR 1.1 (0.8-1.4); PROTHROMBIN TIME PATIENT 13.8 SEC (12.2-14.7)
[2017-11-23 17:42] LABS: ALANINE AMINOTRANSFERASE 29 U/L (0-55); ALBUMIN 5.1 GM/DL (3.2-4.5); ALKALINE PHOSPHATASE 60 U/L (40-136); BILIRUBIN,TOTAL 1.1 MG/DL (0.1-1.0); BUN/CREATININE RATIO 12; CALCIUM 10.2 MG/DL (8.5-10.1); CARBON DIOXIDE 27 MMOL/L (21-32); CHLORIDE 104 MMOL/L (98-107); CREATININE SERUM 1.13 MG/DL (0.60-1.30); GFR ESTIMATED > 60; GLUCOSE 101 MG/DL (70-105); MAGNESIUM 2.4 MG/DL (1.8-2.4); SODIUM 143 MMOL/L (135-145); TOTAL PROTEIN 8.3 GM/DL (6.4-8.2)
[2017-11-23] MEDS ORDERED: NS 250 ML (IVPB) BAG IV ONE (18:00)
[2017-11-23] MEDS ORDERED: IOHEXOL 350 MG/ML 100 ML (OMNIPAQUE 350) VIAL IV ONE (18:00)
[2017-11-23 18:01] LABS: TSH (THYROID ANALYZER) 2.26 UIU/ML (0.35-4.94)
[2017-11-23] MEDS ORDERED: diphenhydrAMINE 50 MG/ML INJ (BENADRYL) IVP ONE (18:30)
[2017-11-23] MEDS ORDERED: PROMETHAZINE INJ 25 MG/ML (PHENERGAN) AMP IVP ONE (18:30)
--- NOTE | 2017-11-23 18:33 | Diagnostic Imaging Report ---
PROCEDURE: CT head without contrast. TECHNIQUE: Multiple contiguous axial images were obtained through the brain without the use of intravenous contrast. INDICATION: Migraine headaches. FINDINGS: There is no CT evidence of acute intracranial hemorrhage. There is no intracranial mass effect or shift. There is no hydrocephalus. There is no abnormal extraaxial fluid collection. The zarate-white matter differentiation appears maintained. There is no abnormal hypodensity within the basal ganglia. Tiny nonspecific calcification present within the ajay. The mastoid air cells appear clear. The visualized paranasal sinuses are clear. Orbital contents are unremarkable. There is no acute calvarial abnormality IMPRESSION: 1. No CT evidence of an acute intracranial abnormality. There is no evidence of hemorrhage, mass effect or hydrocephalus. There are no findings of loss of zarate-white differentiation. 2. Nonspecific calcification within the left aspect of the ajay. While this may be incidental in nature, the possibility of an underlying lesion such as a cavernous malformation would be a consideration. Consider followup with MRI of the brain with and without contrast. Dictated by: Dictated on workstation # [id number]
[2017-11-23] MEDS ORDERED: PROMETHAZINE INJ 25 MG/ML (PHENERGAN) AMP ONE (18:35)
[2017-11-23] MEDS ORDERED: diphenhydrAMINE 50 MG/ML INJ (BENADRYL) ONE (18:35)
--- NOTE | 2017-11-23 18:39 | Diagnostic Imaging Report ---
PROCEDURE: CT abdomen and pelvis with contrast. TECHNIQUE: Multiple contiguous axial images were obtained through the abdomen and pelvis after administration of intravenous contrast. INDICATION: Upper and mid abdominal pain with nausea, vomiting and diarrhea. COMPARISON: No prior studies are available for comparison. FINDINGS: The lung bases are clear. The liver demonstrates generalized low density consistent with hepatic steatosis. No discrete liver mass is identified. Gallbladder is unremarkable. The pancreas and spleen are unremarkable. There appears to be a small accessory spleen adjacent to the lower pole of the spleen. No adrenal mass is identified. The kidneys are unremarkable. The aorta is normal in caliber. Bowel loops are normal caliber. No obstruction is seen. The appendix is visualized and unremarkable. There are small lymph nodes throughout the abdominal mesentery. There are shotty lymph nodes in the central retroperitoneum as well. No definite pathologically enlarged nodes are seen. No inguinal or iliac lymphadenopathy is seen. There is no fluid collection or free air. The bladder is unremarkable. IMPRESSION: 1. Hepatic steatosis. 2. No CT evidence of acute appendicitis. 3. There are small lymph nodes identified throughout the mesentery and central retroperitoneum. This is nonspecific but could be secondary to mesenteric adenitis. No other significant abnormality is seen. Dictated by: Dictated on workstation # [id number]
[2017-11-23] MEDS ORDERED: ONDA8TAB9 PO (19:37)
[2017-11-23] MEDS ORDERED: PROM25SU43 RC (19:37)
[2017-11-23] MEDS ORDERED: LACT1CAP8 PO (19:37)
[2017-11-23 19:51] LABS: BILIRUBIN,URINE NEGATIVE (NEGATIVE); CLARITY,URINE CLEAR; COLOR,URINE YELLOW; GLUCOSE, URINE (UA) NEGATIVE (NEGATIVE); KETONES,URINE NEGATIVE (NEGATIVE); LEUKOCYTE ESTERASE ,URINE 1+ (NEGATIVE); NITRITE,URINE NEGATIVE (NEGATIVE); PH,URINE 7 (5-9); PROTEIN,URINE 2+ (NEGATIVE); UROBILINOGEN,URINE 1 MG/DL (NORMAL)
[2017-11-23 20:00] LABS: BACTERIA,URINE NEGATIVE /HPF; WBC,URINE RARE /HPF
[2017-11-23 20:05] LABS: AMPHETAMINE SCREEN, URINE NEGATIVE (NEGATIVE); BARBITURATE SCREEN URINE NEGATIVE (NEGATIVE); BENZODIAZEPINES SCREEN URINE NEGATIVE (NEGATIVE); CANNABINOID SCREEN, URINE NEGATIVE (NEGATIVE); COCAINE SCREEN URINE NEGATIVE (NEGATIVE); METHADONE STAT NEGATIVE (NEGATIVE); METHAMPHETAMINE SCREEN URINE S NEGATIVE (NEGATIVE); OPIATE SCREEN URINE NEGATIVE (NEGATIVE); OXYCODONE STAT NEGATIVE (NEGATIVE); PROPOXYPHENE STAT NEGATIVE (NEGATIVE); TRICYCLIC ANTIDEPRESSANTS SCRE NEGATIVE (NEGATIVE)
[2017-11-23 21:20] VITALS: BP 132/73
== END 2017-11-23 19:48 | disposition home or self-care (01) ==
LOC: ER 15:30
DX: K52.9 Noninfective gastroenteritis and colitis, unspecified (principal); I88.0 Nonspecific mesenteric lymphadenitis; R53.1 Weakness; G43.909 Migraine, unspecified, not intractable, without status migrainosus; Z96.0 Presence of urogenital implants; Z87.442 Personal history of urinary calculi
CPT/HCPCS: 36415; 70450; 74177; 80053; 80306; 80320; 81000; 83735; 84443; 85025; 85610; 85730; 93005; 93041

== ENCOUNTER 2018-06-19 08:29 | Emergency (ER) | payer BC ==
[~2018-06-19] VITALS: Ht 180.3 cm; Wt 145.1 kg
[~2018-06-19 08:29] MED LIST: LACT1CAP8 PO; ONDA8TAB9 PO; PROM25SU43 RC
--- NOTE | 2018-06-19 09:04 | ED General ---
General Chief Complaint: General Problems/Pain Stated Complaint: MIGRAINES, SOB, VISION, RASH Source of Information: Patient Exam Limitations: No Limitations History of Present Illness Date Seen by Provider: Jun 19, 2018 Time Seen by Provider: 08:44 Initial Comments Patient presents to ER by private conveyance with chief complaint that for the last 2 years problems with headaches and is having a bad one for the past to 3 days you cannot shake. He's been using Tylenol and ibuprofen. He also has a history of drinking soda all throughout the day was feeling thirsty having frequent urination was concerned he might have diabetes. He also has a skin rash for the past several years that is spreading across his chest neck abdomen and in his groin. It is occasionally itchy especially the last several days and his knowles. He does not have a primary care provider. He is denying any nausea fevers cough chills diarrhea or constipation. Allergies and Home Medications Allergies Coded Allergies: No Known Drug Allergies (Unverified , 11/23/17) Home Medications Lactobacillus Acidophilus 1 Each Capsule, 2 EACH PO QID Prescribed by: NABILA CHEN on 11/23/171936 Ondansetron 8 Mg Tab.rapdis, 8 MG PO Q4H Prescribed by: NABILA CHEN on 11/23/171936 Promethazine HCl 25 Mg Supp.rect, 25 MG RC Q4H Prescribed by: NABILA CHEN on 11/23/171936 Patient Home Medication List Home Medication List Reviewed: Yes Review of Systems Review of Systems Constitutional: No chills, No diaphoresis EENTM: No ear discharge, No ear pain Respiratory: No cough, No short of breath Cardiovascular: No chest pain, No edema Gastrointestinal: No abdominal pain, No constipation, No diarrhea, No nausea Genitourinary: No discharge, No dysuria Musculoskeletal: No back pain, No joint pain Past Jagnsom-Kyrxvl-Sxehfd Hx Patient Social History Alcohol Use: Denies Use Recreational Drug Use: No Smoking Status: Never a Smoker Recent Foreign Travel: No Contact w/Someone Who Travel: No Recent Hopitalizations: No Past Medical History Surgeries: Yes (LEFT CLAVICLE FX/ORIF; URETERAL STENT FOR STONE) Orthopedic, Renal Respiratory: No Cardiac: No Neurological: Yes ("HEAT STROKE" PER PT) Genitourinary: Yes Kidney Stones Gastrointestinal: No Musculoskeletal: No Endocrine: No HEENT: No Cancer: No Psychosocial: No Integumentary: No Blood Disorders: No Physical Exam Vital Signs Vital Signs - First Documented 06/19/18 08:45 Pulse 76 Resp 20 B/P (MAP) 147/79 (101) Pulse Ox 99 O2 Delivery Room Air Capillary Refill : Height, Weight, BMI Height: 5'10.00" Weight: 270lbs. oz. 122.766775kt; BMI Method:Stated General Appearance: No Apparent Distress, Obese Eyes: Bilateral Eye Normal Inspection, Bilateral Eye PERRL, Bilateral Eye EOMI HEENT: PERRL/EOMI, Pharynx Normal, Moist Mucous Membranes Neck: Full Range of Motion, Normal Inspection Respiratory: Lungs Clear, Normal Breath Sounds, No Accessory Muscle Use, No Respiratory Distress Cardiovascular: Regular Rate, Rhythm, No Edema Extremity: Normal Capillary Refill, No Pedal Edema Neurologic/Psychiatric: Alert, Oriented x3, No Motor/Sensory Deficits Skin: Rash (tinea versicolor over the abdomen neck. Tinea crura and tinea barbae) Progress/Results/Core Measures Suspected Sepsis SIRS Temperature: Pulse: Respiratory Rate: Blood Pressure / Mean: Results/Orders Lab Results Laboratory Tests Test 06/19/18 09:05 Range/Units Glucometer 100 70-110 MG/DL My Orders Orders - SIOMARA HILLMAN Accucheck Stat ONCE (06/19/18 08:59) Ketorolac Injection (Toradol Injection) (06/19/18 09:30) Prochlorperazine Injection (Compazine In (06/19/18 09:30) Vital Signs/I&O 06/19/18 08:45 Pulse 76 Resp 20 B/P (MAP) 147/79 (101) Pulse Ox 99 O2 Delivery Room Air Capillary Refill : Progress Note : Time: 09:03 Progress Note We have had a long discussion with him and encourage him to follow up and establish with a primary care provider to workup his litany of chronic complaints. Have to offer him some Compazine and Benadryl and Toradol for his headache today. We have suggested that he gets clotrimazole and follow up for probable need of terbinafine or other similar medication for this tinea barbae. We'll check a Accu-Chek. Strong suspicion for presence of diabetes. If his blood sugar is significantly elevated we may consider checking labs but he is as of yet not having any constitutional complaints other than headache. Departure Impression Primary Impression: Headache Qualified Codes: R51 - Headache Additional Impressions: Tinea corporis Tinea barbae Tinea cruris Disposition: 01 HOME, SELF-CARE Condition: Stable Departure-Patient Inst. Decision time for Depature: 09:22 Referrals: ALICIA SNELL MD (PCP/Family) Primary Care Physician Patient Instructions: Headache, Adult (DC), LOCAL PHYSICIAN LIST, Ringworm, Athlete's Foot, and Jock Itch Add. Discharge Instructions: You may use Tylenol 1000 mg every 8 hours in addition to ibuprofen 800 mg every 8 hours as needed for headache. Symptoms you get home take 2 tablets of Benadryl and get some sleep. Drink plenty of fluids. 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 and apply once or twice daily for the next 2 weeks after bathing. Keep your skin very dry. Follow-up with a primary care provider and make and establish an appointment tomorrow Wednesday to discuss oral antifungals. Discuss your concerns about diabetes with your primary doctor. All discharge instructions reviewed with patient and/or family. Voiced understanding. SIOMARA HILLMAN Jun 19, 2018 09:04
[2018-06-19] MEDS ORDERED: PROCHLORPERAZINE 10 MG/2ML INJ (COMPAZINE) IM ONE (09:30)
[2018-06-19] MEDS ORDERED: KETOROLAC 60 MG/2 ML VIAL IM ONE (09:30)
[2018-06-19 09:49] VITALS: BP 147/79
== END 2018-06-19 09:49 | disposition home or self-care (01) ==
LOC: EDUNIT# 08:29 → ER 08:33
DX: R51 Headache (principal); B35.4 Tinea corporis; B35.0 Tinea barbae and tinea capitis; B35.6 Tinea cruris; I25.2 Old myocardial infarction; Z98.890 Other specified postprocedural states; Z96.0 Presence of urogenital implants; Z87.442 Personal history of urinary calculi
CPT/HCPCS: 82962

== ENCOUNTER 2020-04-16 12:34 | Emergency (ER) | payer BC ==
[~2020-04-16] VITALS: Ht 182 cm; Wt 138.0 kg
[2020-04-16 12:35] VITALS: BP 150/85
[2020-04-16] MEDS ORDERED: IBUPROFEN 800 MG (MOTRIN) TAB PO STA (12:47)
--- NOTE | 2020-04-16 12:54 | ED Lower Extremity ---
General Chief Complaint: Lower Extremity Stated Complaint: R KNEE SWOLLEN,PAIN,BRUISED Nursing Triage Note: ARRIVED VIA AMB TO ROOM 06. COMPLAINS OF RIGHT KNEE PAIN. STATES IT BUCKLED ON HIM TWICE YESTERDAY CAUSING HIM TO FALL THE 2ND MADHAVI. COMPLAINS OF PAIN AND BRUISING. Nursing Sepsis Screen: No Definite Risk History of Present Illness Date Seen by Provider: Apr 16, 2020 Time Seen by Provider: 12:35 Initial Comments 25-year-old male presents for right knee swelling and pain after 2 hyperextension injuries in the last 48 hours. He denies any previous history of injuries to his right knee. He took some Tylenol and ibuprofen yesterday but with minimal improvement in his symptoms. He does not have a primary care provider in this area he last saw an orthopedic surgeon for a clavicle fracture in high school in [facility]. He is able to ambulate but with an antalgic gait. Onset: yesterday Pain/Injury Location: right knee Method of Injury: other (Hyperextension) Modifying Factors: Improves With Cold Therapy, Improves With Rest Allergies and Home Medications Allergies Coded Allergies: No Known Drug Allergies (Unverified , 11/23/17) Home Medications Lactobacillus Acidophilus 1 Each Capsule, 2 EACH PO QID Prescribed by: NABILA CHEN on 11/23/171936 Ondansetron 8 Mg Tab.rapdis, 8 MG PO Q4H Prescribed by: NABILA CHEN on 11/23/171936 Promethazine HCl 25 Mg Supp.rect, 25 MG RC Q4H Prescribed by: NABILA CHEN on 11/23/171936 Patient Home Medication List Home Medication List Reviewed: Yes Review of Systems Constitutional: no symptoms reported, see HPI Musculoskeletal: see HPI, joint pain (Right knee), joint swelling All Other Systems Reviewed Negative Unless Noted: Yes Past Qovwvpb-Xrkxpm-Fgcgpd Hx Past Med/Social Hx: Reviewed Nursing Past Med/Soc Hx Patient Social History Alcohol Use: Denies Use Smoking Status: Never a Smoker Recent Infectious Disease Expo: No Recent Hopitalizations: No Immunizations Up To Date Tetanus Booster (TDap): Unknown PED Vaccines UTD: Yes Past Medical History Surgeries: Yes (LEFT CLAVICLE FX/ORIF; URETERAL STENT FOR STONE) Orthopedic, Renal Respiratory: No Cardiac: No Neurological: Yes ("HEAT STROKE" PER PT) Genitourinary: Yes Kidney Stones Gastrointestinal: No Musculoskeletal: No Endocrine: No HEENT: No Cancer: No Psychosocial: No Integumentary: No Blood Disorders: No Physical Exam Vital Signs Vital Signs - First Documented 04/16/20 12:35 Temp 37.0 Pulse 89 Resp 16 B/P (MAP) 150/85 (106) Pulse Ox 96 O2 Delivery Room Air Capillary Refill : Less Than 3 Seconds Height, Weight, BMI Height: 5'11.00" Weight: 320lbs. oz. 145.816005zh; 41.00 BMI Method:Stated General Appearance: WD/WN, no apparent distress Neck: non-tender, full range of motion, supple, normal inspection Cardiovascular: normal peripheral pulses, regular rate, rhythm Respiratory: chest non-tender, lungs clear, normal breath sounds Gastrointestinal: normal bowel sounds, soft Knees: right knee ecchymosis, right knee joint effusion (Small), right knee pain, right knee soft tissue tenderness, right knee other (Range of motion 0 to 60 degrees, laxity with valgus stress testing, anterior drawer and Kenisha. Steady gait, trace pain with ambulation. ) Neurologic/Tendon: normal sensation, normal motor functions, normal tendon functions Neurologic/Psychiatric: no motor/sensory deficits, alert, normal mood/affect, oriented x 3 Skin: normal color, warm/dry Progress/Results/Core Measures Results/Orders My Orders Orders - KURTIS JOY Knee, Right, 3 Views (04/16/20 12:47) Ibuprofen Tablet (Motrin Tablet) (04/16/20 12:47) Vital Signs/I&O 04/16/20 12:35 Temp 37.0 Pulse 89 Resp 16 B/P (MAP) 150/85 (106) Pulse Ox 96 O2 Delivery Room Air Blood Pressure Mean: 108 Diagnostic Imaging Diagonstic Imaging: Xray Plain Films/CT/US/NM/MRI: knee Comments NAME: FUNMILAYO MOYA Katherine PINZON REC#: [id number] PT STATUS: REG ER : 1995 PHYSICIAN: KURTIS JOY ADMIT DATE: 04/16/20/ER Draft Date of Exam:04/16/20 KNEE, RIGHT, 3 VIEWS INDICATION: Knee pain. Instability. COMPARISON: None. FINDINGS: Three views of the right knee joint demonstrate no acute fracture or dislocation. No focal osseous lesions are seen. Small joint effusion is suspected. The surrounding soft tissue structures are unremarkable. There are no radiopaque foreign bodies. IMPRESSION: 1. Probable small joint effusion, but no radiographic evidence of acute fracture or dislocation of the right knee. Dictated on workstation # [id number] Dict: 04/16/20 1301 Trans: 04/16/20 1303 [facility] [place] [id number] Interpreted by: KYARA CRAWFORD MD Electronically signed by: Reviewed: Reviewed by Me Departure Impression Primary Impression: Hyperextension injury of right knee Qualified Codes: S89.81XA - Other specified injuries of right lower leg, initial encounter Additional Impressions: ACL sprain Qualified Codes: S83.511A - Sprain of anterior cruciate ligament of right knee, initial encounter Right knee pain Qualified Codes: M25.561 - Pain in right knee Disposition: 01 HOME, SELF-CARE Condition: Improved Departure-Patient Inst. Decision time for Depature: 13:05 Referrals: NO,LOCAL PHYSICIAN (PCP) Primary Care Physician HERLINDA ELLIS MD, MICHAEL P MD Patient Instructions: Knee Sprain (DC) Add. Discharge Instructions: Activity as tolerated. Call orthopedics to schedule an appointment. Alternate between ibuprofen 600 mg and Tylenol 650 mg every 4 hours for pain. Boyd wrap to right knee for swelling. Ice to right knee for 20 minutes every 2 hours while awake. Work on range of motion to the right knee. Return to the emergency department for new, urgent healthcare needs. All discharge instructions reviewed with patient and/or family. Voiced understanding. KURTIS JOY Apr 16, 2020 12:54
--- NOTE | 2020-04-16 13:03 | Diagnostic Imaging Report ---
INDICATION: Knee pain. Instability. COMPARISON: None. FINDINGS: Three views of the right knee joint demonstrate no acute fracture or dislocation. No focal osseous lesions are seen. Small joint effusion is suspected. The surrounding soft tissue structures are unremarkable. There are no radiopaque foreign bodies. IMPRESSION: 1. Probable small joint effusion, but no radiographic evidence of acute fracture or dislocation of the right knee. Dictated by: Dictated on workstation # [id number]
== END 2020-04-16 13:14 | disposition home or self-care (01) ==
LOC: EDUNIT# 12:34 → ER 12:36
DX: S83.511A Sprain of anterior cruciate ligament of right knee, initial encounter (principal); X50.9XXA Other and unspecified overexertion or strenuous movements or postures, initial encounter
CPT/HCPCS: 73562

== ENCOUNTER 2020-08-24 08:42 | Emergency (ER) | payer BC ==
[~2020-08-24] VITALS: Ht 180.3 cm; Wt 140.2 kg
[2020-08-24 08:55] LABS: BILIRUBIN,URINE NEGATIVE (NEGATIVE); CLARITY,URINE CLEAR; COLOR,URINE YELLOW; GLUCOSE, URINE (UA) NEGATIVE (NEGATIVE); KETONES,URINE NEGATIVE (NEGATIVE); LEUKOCYTE ESTERASE ,URINE NEGATIVE (NEGATIVE); NITRITE,URINE NEGATIVE (NEGATIVE); PROTEIN,URINE NEGATIVE (NEGATIVE)
[2020-08-24] MEDS ORDERED: KETOROLAC 30 MG/ML VIAL IVP ONE (09:00)
[2020-08-24] MEDS ORDERED: NS IV 1000 ML 1,000 ML IV SCH (09:00)
[2020-08-24 09:12] LABS: BASOPHILS % (AUTO) 1 % (0-10); EOSINOPHILS # (AUTO) 0.1 10^3/uL (0.0-0.3); EOSINOPHILS % (AUTO) 2 % (0-10); HEMATOCRIT 44 % (40-54); HEMOGLOBIN 14.7 g/dL (13.3-17.7); LYMPHOCYTES # (AUTO) 2.7 10^3/uL (1.0-4.0); LYMPHOCYTES % (AUTO) 41 % (12-44); MEAN CORPUSCULAR HEMOGLOBIN 30 pg (25-34); MEAN CORPUSCULAR HGB CONC 33 g/dL (32-36); MEAN CORPUSCULAR VOLUME 91 fL (80-99); MEAN PLATELET VOLUME 10.3 fL (9.0-12.2); MONOCYTES # (AUTO) 0.5 10^3/uL (0.0-1.0); MONOCYTES % (AUTO) 7 % (0-12); NEUTROPHILS # (AUTO) 3.2 10^3/uL (1.8-7.8); NEUTROPHILS % (AUTO) 49 % (42-75); PLATELET COUNT 270 10^3/uL (130-400); WHITE BLOOD COUNT 6.6 10^3/uL (4.3-11.0)
[2020-08-24 09:13] LABS: BACTERIA,URINE NEGATIVE /HPF
[2020-08-24 09:23] LABS: CHLORIDE 106 MMOL/L (98-107); POTASSIUM 3.7 MMOL/L (3.6-5.0); SODIUM 142 MMOL/L (135-145)
[2020-08-24 09:24] LABS: CALCIUM 8.7 MG/DL (8.5-10.1); GLUCOSE 94 MG/DL (70-105)
[2020-08-24 09:26] LABS: CARBON DIOXIDE 25 MMOL/L (21-32)
[2020-08-24 09:28] LABS: CREATININE SERUM 1.14 MG/DL (0.60-1.30); GFR ESTIMATED > 60
[2020-08-24 09:29] LABS: BUN/CREATININE RATIO 13
--- NOTE | 2020-08-24 10:43 | Diagnostic Imaging Report ---
PROCEDURE: CT urinary tract, rule out kidney stone. TECHNIQUE: Multiple contiguous axial images were obtained through the abdomen and pelvis without the use of intravenous contrast. Auto Exposure Controls were utilized during the CT exam to meet ALARA standards for radiation dose reduction. Indication: Left flank pain with dysuria. Comparison: 11/23/2017. Discussion: The lung bases are well-aerated. Normal heart size. No pleural or pericardial fluid. Fatty hepatomegaly is stable. Gallbladder is contracted. The pancreas, stomach, spleen, and adrenal glands are unremarkable. No renal stone or hydronephrosis. The urinary bladder and prostate are unremarkable. No diverticulosis. The large and small bowel loops appear within normal limits. The appendix is normal. No ascites or adenopathy. No osseous abnormality identified. Impression: 1. No acute abnormality identified within the abdomen or pelvis. Chronic fatty hepatomegaly is stable. Dictated by: Dictated on workstation # [id number]
--- NOTE | 2020-08-24 10:54 | Diagnostic Imaging Report ---
PROCEDURE: CT lumbar spine without contrast. TECHNIQUE: Multiple contiguous axial images were obtained through the lumbar spine without the use of intravenous contrast. Sagittal and coronal reformations were then performed. Auto Exposure Controls were utilized during the CT exam to meet ALARA standards for radiation dose reduction. Indication: Acute onset low back pain. Comparison: None. Discussion: The paraspinal soft tissues are unremarkable. The intervertebral disc spaces and facet joints are well-maintained. No obvious neural foraminal narrowing on this noncontrast CT. No obvious large disc protrusion. Left L5 pseudoarthrosis incidentally noted which can be associated with pain. Impression: 1. Incidental note of a left L5 pseudoarthrosis. Otherwise unremarkable lumbar spine. Dictated by: Dictated on workstation # [id number]
--- NOTE | 2020-08-24 10:58 | ED Back Pain ---
General Chief Complaint: Back Problems Stated Complaint: L SIDE LOWER BACK PAIN/DIFF URINATING Nursing Triage Note: PT ARRIVED BY PRIVATE VEHICLE WITH CHIEF COMPLAINT OF LEFT LOWER BACK PAIN AND DIFFICULTY URINATING. ON ARRIVAL, PATIENT WAS ALERT, ORIENTED X4 AND AMBULATORY. PT PROVIDED URINE SAMPLE THEN AMBULATED TO ROOM 7 WHERE HIS VITALS WERE COMPLETED. PT STATED HE HAS A HISTORY OF KIDNEY STONES IN 2011 WHERE THEY WERE TOO LARGE TO PASS AND HE HAD A BLADDER STENT PLACED FOR 3 DAYS IN [place]. PT STATED SYMPTOMS ARE THE SAME. HE IS HAVING FLANK PAIN ON THE LEFT SIDE AND DIFFICULTY URINATING/BURNING. PT STATED LAST NIGHT HE TRIED ICE AND HEAT AND HE JUST COULD NOT GET COMFORTABLE. PT STATED HE CAME BECAUSE HE DOESN'T WANT IT TO GET BAD LAST TIME WHERE HIS PAIN WAS A 20 AND HAD N/V. IV WAS STARTED WITH BLOOD DRAW AND REPORT WAS GIVEN TO PROVIDER. Source of Information: Patient Exam Limitations: No Limitations History of Present Illness Date Seen by Provider: Aug 24, 2020 Time Seen by Provider: 08:45 Initial Comments This 25-year-old young man presents to the emergency room with complaints of left lower back pain which he feels is consistent with prior episodes of ureteral stones. Pain has been present for about 3 days. It does not seem to be associated with position or movement. He also notes some urinary changes with some urinary urgency but small voids followed by urgency shortly after the void. He denies any penile discharge. He also has had some slight dysuria occasionally with urination. He has not noted any blood or significantly dark color to his urine. He is afebrile. He rates his pain about 5/10 at this time. 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 Allergies and Home Medications Allergies Coded Allergies: No Known Drug Allergies (Unverified , 11/23/17) Home Medications Cyclobenzaprine HCl 10 Mg Tablet, 10 MG PO Q8H PRN for SPASMS Prescribed by: JOSTIN SOLARES on 08/24/20 1121 Lactobacillus Acidophilus 1 Each Capsule, 2 EACH PO QID Prescribed by: NABILA CHEN on 11/23/171936 Ondansetron 8 Mg Tab.rapdis, 8 MG PO Q4H Prescribed by: NABILA CHEN on 11/23/171936 Prednisone 20 Mg Tab, 20 MG PO DAILY Prescribed by: JOSTIN SOLARES on 08/24/20 1121 Promethazine HCl 25 Mg Supp.rect, 25 MG RC Q4H Prescribed by: NABILA CHEN on 11/23/17 193 Patient Home Medication List Home Medication List Reviewed: Yes Review of Systems Constitutional: no symptoms reported EENTM: no symptoms reported Respiratory: no symptoms reported Cardiovascular: no symptoms reported Gastrointestinal: no symptoms reported Genitourinary: see HPI Musculoskeletal: see HPI Skin: no symptoms reported Psychiatric/Neurological: No Symptoms Reported Past Hdkmlzh-Rnymnv-Cvfqid Hx Patient Social History Tobacco Use?: No Substance use?: No Alcohol Use?: No Pt feels they are or have been: No Immunizations Up To Date Tetanus Booster (TDap): Unknown PED Vaccines UTD: Yes Past Medical History Surgeries: Yes (LEFT CLAVICLE FX/ORIF; URETERAL STENT FOR STONE) Orthopedic, Renal Respiratory: No Cardiac: No Neurological: Yes ("HEAT STROKE" PER PT) Genitourinary: Yes Kidney Stones Gastrointestinal: No Musculoskeletal: No Endocrine: No HEENT: No Cancer: No Psychosocial: No Integumentary: No Blood Disorders: No Physical Exam Vital Signs Vital Signs - First Documented 08/24/20 08:46 Temp 35.9 Pulse 80 Resp 18 B/P (MAP) 150/94 (112) Pulse Ox 98 O2 Delivery Room Air Capillary Refill : Less Than 3 Seconds Height, Weight, BMI Height: 5'11.00" Weight: 320lbs. oz. 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 Norm as Tested, Abnormal Cerebellar Tests Skin: Normal Color, Warm/Dry Progress/Results/Core Measures Results/Orders Lab Results Laboratory Tests Test 08/24/20 08:45 08/24/20 08:58 Range/Units Urine Color YELLOW Urine Clarity CLEAR Urine pH 7.0 5-9 Urine Specific [place] 1.020 1.016-1.022 Urine Protein NEGATIVE NEGATIVE Urine Glucose (UA) NEGATIVE NEGATIVE Urine Ketones NEGATIVE NEGATIVE Urine Nitrite NEGATIVE NEGATIVE Urine Bilirubin NEGATIVE NEGATIVE Urine Urobilinogen 4.0 < = 1.0 MG/DL Urine Leukocyte Esterase NEGATIVE NEGATIVE Urine RBC (Auto) NEGATIVE NEGATIVE Urine RBC NONE /HPF Urine WBC NONE /HPF Urine Crystals NONE /LPF Urine Bacteria NEGATIVE /HPF Urine Casts NONE /LPF Urine Mucus NEGATIVE /LPF Urine Culture Indicated NO White Blood Count 6.6 4.3-11.0 10^3/uL Red Blood Count 4.84 4.30-5.52 10^6/uL Hemoglobin 14.7 13.3-17.7 g/dL Hematocrit 44 40-54 % Mean Corpuscular Volume 91 80-99 fL Mean Corpuscular Hemoglobin 30 25-34 pg Mean Corpuscular Hemoglobin Concent 33 32-36 g/dL Red Cell Distribution Width 12.9 10.0-14.5 % Platelet Count 270 130-400 10^3/uL Mean Platelet Volume 10.3 9.0-12.2 fL Immature Granulocyte % (Auto) 0 % Neutrophils (%) (Auto) 49 42-75 % Lymphocytes (%) (Auto) 41 12-44 % Monocytes (%) (Auto) 7 0-12 % Eosinophils (%) (Auto) 2 0-10 % Basophils (%) (Auto) 1 0-10 % Neutrophils # (Auto) 3.2 1.8-7.8 10^3/uL Lymphocytes # (Auto) 2.7 1.0-4.0 10^3/uL Monocytes # (Auto) 0.5 0.0-1.0 10^3/uL Eosinophils # (Auto) 0.1 0.0-0.3 10^3/uL Basophils # (Auto) 0.0 0.0-0.1 10^3/uL Immature Granulocyte # (Auto) 0.0 0.0-0.1 10^3/uL Sodium Level 142 135-145 MMOL/L Potassium Level 3.7 3.6-5.0 MMOL/L Chloride Level 106 98-107 MMOL/L Carbon Dioxide Level 25 21-32 MMOL/L Anion Gap 11 5-14 MMOL/L Blood Urea Nitrogen 15 7-18 MG/DL Creatinine 1.14 0.60-1.30 MG/DL Estimat Glomerular Filtration Rate > 60 BUN/Creatinine Ratio 13 Glucose Level 94 70-105 MG/DL Calcium Level 8.7 8.5-10.1 MG/DL My Orders Orders - JOSTIN LUGO MD Ua Culture If Indicated (08/24/20 08:45) Basic Metabolic Panel (08/24/20 08:51) Cbc With Automated Diff (08/24/20 08:51) Ed Iv/Invasive Line Start (08/24/20 08:51) Ns Iv 1000 Ml (Sodium Chloride 0.9%) (08/24/20 09:00) Ketorolac Injection (Toradol Injection) (08/24/20 09:00) Ct Abd/Pelvis Wo(Kidney Stone) (08/24/20 10:07) Ct Lumbar Spine Wo (08/24/20 10:26) Medications Given in ED Vital Signs/I&O 08/24/20 08/24/20 08:46 11:35 Temp 35.9 Pulse 80 64 Resp 18 16 B/P (MAP) 150/94 (112) 132/78 Pulse Ox 98 97 O2 Delivery Room Air Room Air Blood Pressure Mean: 112 Progress Progress Note : Progress Note The nature of patient's pain is seemed more musculoskeletal given the bilateral tenderness and tenderness over the lumbar spine. However, he also describes some urinary dysfunction. This was potentially concerning for or spinal pathology. I therefore discussed options with the patient including conservative approach with treatment and close monitoring of symptoms versus imaging. Patient elected to proceed with imaging. In the meantime he was treat ed with Toradol and IV fluids. CT of the abdomen and pelvis revealed no ureteral stones. CT of the lumbar spine was therefore added. CT demonstrated a pseudoarthrosis of L5 on the left which correlates well with his area of focused pain. We discussed treatment options and medications along with weight loss. See discharge instructions for further discussion. He was also given a list of local providers and instructed to establish with a PCP. Diagnostic Imaging Diagonstic Imaging: CT Plain Films/CT/US/NM/MRI: abdomen, pelvis Comments CT abdomen and pelvis viewed by me and report reviewed. See report below: NAME: FUNMILAYO MOYA [facility] REC#: [id number] PT STATUS: DEP ER : 1995 PHYSICIAN: JOSTIN LUGO MD ADMIT DATE: 08/24/20/ER Signed Date of Exam:08/24/20 CT ABD/PELVIS WO(KIDNEY STONE) PROCEDURE: CT urinary tract, rule out kidney stone. TECHNIQUE: Multiple contiguous axial images were obtained through the abdomen and pelvis without the use of intravenous contrast. Auto Exposure Controls were utilized during the CT exam to meet ALARA standards for radiation dose reduction. Indication: Left flank pain with dysuria. Comparison: 11/23/2017. Discussion: The lung bases are well-aerated. Normal heart size. No pleural or pericardial fluid. Fatty hepatomegaly is stable. Gallbladder is contracted. The pancreas, stomach, spleen, and adrenal glands are unremarkable. No renal stone or hydronephrosis. The urinary bladder and prostate are unremarkable. No diverticulosis. The large and small bowel loops appear within normal limits. The appendix is normal. No ascites or adenopathy. No osseous abnormality identified. Impression: 1. No acute abnormality identified within the abdomen or pelvis. Chronic fatty hepatomegaly is stable. Dictated by: Dictated on workstation # [id number] Dict: 08/24/20 1038 Trans: 08/24/20 1549 [facility] [place] [id number] Interpreted by: RODOLFO JURADO MD Electronically signed by: RODOLFO JURADO MD 08/24/20 1549 Diagonstic Imaging: CT Plain Films/CT/US/NM/MRI: other (Lumbar spine) Comments CT lumbar spine viewed by me and report reviewed. See report below: NAME: FUNMILAYO MOYA [facility] REC#: [id number] PT STATUS: DEP ER : 1995 PHYSICIAN: JOSTIN LUGO MD ADMIT DATE: 08/24/20/ER Signed Date of Exam:08/24/20 CT LUMBAR SPINE WO PROCEDURE: CT lumbar spine without contrast. TECHNIQUE: Multiple contiguous axial images were obtained through the lumbar spine without the use of intravenous contrast. Sagittal and coronal reformations were then performed. Auto Exposure Controls were utilized during the CT exam to meet ALARA standards for radiation dose reduction. Indication: Acute onset low back pain. Comparison: None. Discussion: The paraspinal soft tissues are unremarkable. The intervertebral disc spaces and facet joints are well-maintained. No obvious neural foraminal narrowing on this noncontrast CT. No obvious large disc protrusion. Left L5 pseudoarthrosis incidentally noted which can be associated with pain. Impression: 1. Incidental note of a left L5 pseudoarthrosis. Otherwise unremarkable lumbar spine. Dictated by: Dictated on workstation # [id number] Dict: 08/24/20 1041 Trans: 08/24/20 1549 [facility] [place] [id number] Interpreted by: RODOLFO JURADO MD Electronically signed by: RODOLFO JURADO MD 08/24/20 1549 Departure Impression Primary Impression: Low back pain Qualified Codes: M54.5 - Low back pain Additional Impressions: Pseudoarthrosis of lumbar spine Dysuria Disposition: 01 HOME, SELF-CARE Condition: Improved Departure-Patient Inst. Decision time for Depature: 11:18 Referrals: RODOLFO MEEHAN MD [facility][1]/SHENG WEBB MD, DANIEL J MD ORENDER, JACQUELINE S DO STEWART, CHAD C MD Patient Instructions: Low Back Pain in Adults Add. Discharge Instructions: For primary pain control take a combination of ibuprofen 600 mg every 6 hours and Tylenol (acetaminophen) 1000 mg every 6 hours as needed. For muscle tension or spasms you may take cyclobenzaprine as prescribed. Prednisone use over the next couple of days may help resolve your inflammation and pain. Take early in the day with food or milk to prevent upset stomach or sleep disturbance. Avoid heavy lifting or strenuous activity until pain resolves. Follow-up with a primary care provider soon as possible. Call with questions or concerns. Return to the emergency room if you have worsening symptoms including escalating pain, difficulty with bowel or bladder control, numbness in your legs, numbness in your groin, or true weakness in your legs. All discharge instructions reviewed with patient and/or family. Voiced understanding. Scripts Prednisone (Prednisone) 20 Mg Tab 20 MG PO DAILY, #4 TAB 0 Refills Prov: JOSTIN LUGO MD 08/24/20 Cyclobenzaprine HCl (Cyclobenzaprine HCl) 10 Mg Tablet 10 MG PO Q8H PRN for SPASMS, #15 TAB 0 Refills Prov: JOSTIN LUGO MD 08/24/20 Work/School Note: Work Release Form Date Seen in the Emergency Department: Aug 24, 2020 Return to Work: Aug 26, 2020 Other Restrictions Listed Below: No strenuous activity or heavy lifting until pain resolves. JOSTIN LUGO MD Aug 24, 2020 10:58
[2020-08-24] MEDS ORDERED: CYCL10TA9 PO (11:21)
[2020-08-24] MEDS ORDERED: PRD20T PO (11:21)
[2020-08-24 11:35] VITALS: BP 132/78
== END 2020-08-24 11:54 | disposition home or self-care (01) ==
LOC: EDUNIT# 08:42 → ER 08:43
DX: M54.5 Low back pain (principal); M96.0 Pseudarthrosis after fusion or arthrodesis; R30.0 Dysuria; E66.9 Obesity, unspecified; Z68.41 Body mass index [BMI] 40.0-44.9, adult
CPT/HCPCS: 36415; 72131; 74176; 80048; 81000; 85025

== ENCOUNTER 2020-12-09 08:20 | Emergency (ER) | payer BC ==
[~2020-12-09] VITALS: Ht 180.3 cm; Wt 129.3 kg
[~2020-12-09 08:20] MED LIST changes: +CYCL10TA9 PO; +PRD20T PO
[2020-12-09 08:24] VITALS: BP 143/108
--- OUTSIDE RECORDS SUMMARY | 2020-12-09 08:26 | XMS REPORT | Clinical Summary ---
Author Author [facility] Organization [facility] Address Unknown Phone Unavailable Care Team Providers Care Surgical Processor Name Role Phone PCP Unavailable Allergies Not on File Medications Not on file Active Problems Not on file Social History Date Tobacco Use Types Packs/Day Years Used Never Assessed Sex Assigned at Date Recorded Not on file Last Filed Vital Signs Not on file Plan of Treatment Health Maintenance Due Date Last Done Comments Varicella Vaccines (1 of 02/05/1996 2 - 2-dose childhood series) HPV Vaccines (1 - Male 2006 2-dose series) COVID-19 Vaccine (1) 2007 Hepatitis C Screening 2013 DTaP,Tdap,and Td Vaccines 2014 (1 - Tdap) MMR Vaccines-Adult 2014 Influenza Vaccine (#1) 2020 Pneumo-Vaccine: 65+Yrs (1 02/05/2060 of 1 - PPSV23) HIB Vaccines Aged Out No longer eligible based on patient's age to complete this topic IPV Vaccines Aged Out No longer eligible based on patient's age to complete this topic Meningococcal Vaccine Aged Out No longer eligib le based on patient's age to complete this topic Pneumo-Vaccine: Peds (0-5 Aged Out No longer el igible based on patient's age to Yrs) & At-Risk Patients complete this topic (6-64 Yrs) Rotavirus Vaccines Aged Out No longer eligible based on patient's age to complete this topic Results Not on filefrom Last 3 Months
--- NOTE | 2020-12-09 08:29 | ED EENT ---
History of Present Illness General Stated Complaint: SORE THROAT Source: patient Exam Limitations: no limitations History of Present Illness Date Seen by Provider: Dec 09, 2020 Time Seen by Provider: 08:25 Initial Comments 25yoM with no significant PMH coming in due to a sore throat. Started yesterday. H/o strep throat many years ago. Tried ibuprofen and numbing spray which helped for a little. Some pain with swallowing. No cough, fever, cp, sob, abd pain, n/v/d. Vaccinated for COVID. Has not been infected that he knows of. Allergies and Home Medications Allergies Coded Allergies: No Known Drug Allergies (Unverified , 11/23/17) Patient Home Medication List Home Medication List Reviewed: Yes Cyclobenzaprine HCl (Cyclobenzaprine HCl) 10 Mg Tablet, 10 MG PO Q8H PRN for SPASMS Prescribed by: JOSTIN SOLARES on 08/24/201120 Lactobacillus Acidophilus (Acidophilus) 1 Each Capsule, 2 EACH PO QID Prescribed by: NABILA CHEN on 11/23/171936 Ondansetron (Zofran Odt) 8 Mg Tab.rapdis, 8 MG PO Q4H Prescribed by: NABILA CHEN on 11/23/171936 Prednisone (Prednisone) 20 Mg Tab, 20 MG PO DAILY Prescribed by: JOSTIN SOLARES on 08/24/201120 Promethazine HCl (Phenergan) 25 Mg Supp.rect, 25 MG RC Q4H Prescribed by: NABILA CHEN on 11/23/171936 Review of Systems Review of Systems Constitutional: No chills, No fever Eyes: Denies Blurred Vision Ears: Denies Pain Nose: denies congestion Mouth: denies pain, denies swelling Throat: pain; denies neck stiffness, denies hoarse, denies muffled, denies difficulty with fluids Respiratory: No cough, No short of breath Cardiovascular: No chest pain Gastrointestinal: No abdominal pain, No diarrhea, No nausea, No vomiting Musculoskeletal: no symptoms reported Skin: no symptoms reported Neurological: No Symptoms Reported Hematologic/Lymphatic: No Symptoms Reported Immunological/Allergic: no symptoms reported All Other Systems Reviewed Negative Unless Noted: Yes Past Vtqmztj-Pdizse-Nbwxjb Hx Immunizations Up To Date Tetanus Booster (TDap): Unknown PED Vaccines UTD: Yes Past Medical History Surgeries: Yes (LEFT CLAVICLE FX/ORIF; URETERAL STENT FOR STONE) Orthopedic, Renal Respiratory: No Cardiac: No Neurological: Yes ("HEAT STROKE" PER PT) Genitourinary: Yes Kidney Stones Gastrointestinal: No Musculoskeletal: No Endocrine: No HEENT: No Cancer: No Psychosocial: No Integumentary: No Blood Disorders: No Physical Exam Vital Signs Vital Signs - First Documented 12/09/20 08:24 Temp 36.8 Pulse 58 Resp 16 B/P (MAP) 143/108 (120) Pulse Ox 98 O2 Delivery Room Air Height, Weight, BMI Height: 5'11.00" Weight: 320lbs. oz. 145.949552pv; 43.00 BMI Method:Stated General Appearance: WD/WN, no apparent distress Eyes: bilateral eye normal inspection, bilateral eye PERRL Ears: bilateral ear auricle normal, bilateral ear canal normal, bilateral ear TM normal Nose: normal inspection; No sinus tenderness Mouth/Throat: normal mouth inspection; No dental tenderness, No excessive drooling, No foreign body, No mandibular swelling, No maxillary swelling, No pharynx tenderness, No tongue swollen; tonsillar exudate (Erythematous pharynx); No trismus, No uvula swelling, No voice changes; other Neck: non-tender, full range of motion, supple, normal inspection Cardiovascular: regular rate, rhythm, no edema, no murmur Respiratory: chest non-tender, lungs clear, normal breath sounds, no respiratory distress, no accessory muscle use Gastrointestinal: normal bowel sounds, non tender, soft; No distended, No guarding, No rebound Neurologic/Psychiatric: no motor/sensory deficits, alert, normal mood/affect Skin: normal color, warm/dry Progress/Results/Core Measures Results/Orders Lab Results Laboratory Tests Test 12/09/20 08:50 Range/Units Group A Streptococcus Screen NEGATIVE NEGATIVE My Orders Orders - ALEIDA CESAR MD Ibuprofen Tablet (Motrin Tablet) (12/09/20 08:45) Dexamethasone Tablet (Decadron Tablet) (12/09/20 08:43) Rapid Strep A Screen (12/09/20 08:43) Medications Given in ED Current Medications Medications Dose Ordered Sig/Fox Route Start Time Stop Time Status Last Admin Dose Admin Ibuprofen 600 mg ONCE ONCE PO 12/09/20 08:45 12/09/20 08:46 DC 12/09/20 08:53 600 MG Vital Signs/I&O 12/09/20 08:24 Temp 36.8 Pulse 58 Resp 16 B/P (MAP) 143/108 (120) Pulse Ox 98 O2 Delivery Room Air Progress Progress Note : Progress Note 45-year-old male with above history coming in due to sore throat. ABCs intact and vitals were stable on presentation. Physical exam with some lymph node swollen anteriorly, some mild tonsillar exudate, and potentially subjective fever on Wednesday. Centor score is 3 and we will test him for strep throat. Given ibuprofen and Decadron as well for pain. Strep test negative. He is well-appearing otherwise. I believe he stable for discharge. Sent with strict return precautions Departure Impression Primary Impression: Pharyngitis Qualified Codes: J02.9 - Acute pharyngitis, unspecified Disposition: HOME, SELF-CARE Condition: Stable Departure-Patient Inst. Decision time for Depature: 09:36 Referrals: NO,LOCAL PHYSICIAN (PCP/Family) Primary Care Physician Patient Instructions: Viral Pharyngitis (DC) Add. Discharge Instructions: Your strep test was negative, and this is likely some viral cause for your sore throat. If you develop fever, cough, vomiting, or any other concerns then I would recommend you go get a Covid test. Otherwise, this is one of the other causes of a sore throat. 1 of those causes is mono. If you develop more fatigue over the next coming weeks this is possible. He has any left upper abdominal pain as well then I would recommend not doing any type of contact sports. Please follow-up with your primary care doctor. Take 600 mg of ibuprofen every 6 hours as needed for pain and drink plenty water to ALEIDA CESAR MD Dec 09, 2020 08:29
[2020-12-09] MEDS ORDERED: dexAMETHasone 6 MG TAB (DECADRON) PO STA (08:43)
[2020-12-09] MEDS ORDERED: IBUPROFEN 600 MG (MOTRIN) TAB PO ONE (08:45)
== END 2020-12-09 10:01 | disposition home or self-care (01) ==
LOC: EDUNIT# 08:20 → ER 08:21
DX: J02.9 Acute pharyngitis, unspecified (principal); Z79.52 Long term (current) use of systemic steroids
CPT/HCPCS: 87430; 99283

== ENCOUNTER 2021-02-03 02:43 | Emergency (ER) | payer BC ==
[~2021-02-03] VITALS: Ht 180 cm; Wt 145.0 kg
[~2021-02-03 02:43] MED LIST changes: +CYCL10TA25 PO; -CYCL10TA9 PO
[2021-02-03 03:38] LABS: BASOPHILS % (AUTO) 0 % (0-10); EOSINOPHILS # (AUTO) 0.1 10^3/uL (0.0-0.3); EOSINOPHILS % (AUTO) 1 % (0-10); HEMATOCRIT 45 % (40-54); HEMOGLOBIN 15.1 g/dL (13.3-17.7); LYMPHOCYTES # (AUTO) 3.1 10^3/uL (1.0-4.0); LYMPHOCYTES % (AUTO) 40 % (12-44); MEAN CORPUSCULAR HEMOGLOBIN 30 pg (25-34); MEAN CORPUSCULAR HGB CONC 34 g/dL (32-36); MEAN CORPUSCULAR VOLUME 90 fL (80-99); MEAN PLATELET VOLUME 10.6 fL (9.0-12.2); MONOCYTES # (AUTO) 0.6 10^3/uL (0.0-1.0); MONOCYTES % (AUTO) 8 % (0-12); NEUTROPHILS # (AUTO) 3.8 10^3/uL (1.8-7.8); NEUTROPHILS % (AUTO) 50 % (42-75); PLATELET COUNT 290 10^3/uL (130-400); WHITE BLOOD COUNT 7.7 10^3/uL (4.3-11.0)
[2021-02-03 03:40] LABS: ALBUMIN 4.5 GM/DL (3.2-4.5); POTASSIUM 3.8 MMOL/L (3.6-5.0)
[2021-02-03 03:41] LABS: CALCIUM 9.2 MG/DL (8.5-10.1)
[2021-02-03 03:42] LABS: TOTAL PROTEIN 7.4 GM/DL (6.4-8.2)
[2021-02-03 03:44] LABS: BILIRUBIN,TOTAL 0.4 MG/DL (0.1-1.0)
[2021-02-03 03:46] LABS: CREATININE SERUM 0.98 MG/DL (0.60-1.30)
[2021-02-03 03:49] LABS: MAGNESIUM 2.2 MG/DL (1.6-2.4)
[2021-02-03 03:51] LABS: INR 0.9 (0.8-1.4); PARTIAL THROMBOPLASTIN TIME 26 SEC (24-35); PROTHROMBIN TIME PATIENT 12.7 SEC (12.2-14.7)
[2021-02-03] MEDS ORDERED: ONDANSETRON 4 MG/2 ML (SDV) Z0FRAN IVP ONE (04:00)
[2021-02-03] MEDS ORDERED: LIDOCAINE 2% VISCOUS 15 ML UDC PO ONE (04:00)
[2021-02-03] MEDS ORDERED: ANTACID SUSP 30 ML UDC (MYLANTA) PO ONE (04:00)
--- NOTE | 2021-02-03 04:04 | ED Chest Pain ---
General Chief Complaint: Chest Pain Stated Complaint: LEFT CP,SOB,BACK PAIN Nursing Triage Note: PT AMB TO ED BY POV WITH C/O CP SINCE 1100 YESTERDAY. REPORTS PAIN 8/10 ON L SIDE OF CHEST, RADIATING BETWEEN SHOULDER BLADES AND BACK. PT ALSO REPORTS SOB. DENIES FEVER/CHILLS, COUGH, ANY SICK CONTACTS. Source: patient Exam Limitations: no limitations History of Present Illness Date Seen by Provider: Feb 03, 2021 Time Seen by Provider: 02:53 Initial Comments This 25-year-old young man presents to the emergency room with complaints of left-sided chest pain that radiates between the shoulder blades since 2300 yesterday. He describes it as a tightness. It is worse with deep breathing. He also has some paid with movement but not necessarily with exertion. He notes shortness of breath but denies any significant cough, fever, or chills. He has had no nausea, vomiting, or diarrhea. He is fully vaccinated for COVID-19. He took Gaviscon without relief. Allergies and Home Medications Allergies Coded Allergies: No Known Drug Allergies (Unverified , 11/23/17) Patient Home Medication List Home Medication List Reviewed: Yes Cyclobenzaprine HCl (Cyclobenzaprine HCl) 10 Mg Tablet, 10 MG PO Q8H PRN for SPASMS Prescribed by: JOSTIN SOLARES on 08/24/20 112 Lactobacillus Acidophilus (Acidophilus) 1 Each Capsule, 2 EACH PO QID Prescribed by: NABILA CHEN on 11/23/171936 Ondansetron (Zofran Odt) 8 Mg Tab.rapdis, 8 MG PO Q4H Prescribed by: NABILA CHEN on 11/23/171936 Prednisone (Prednisone) 20 Mg Tab, 20 MG PO DAILY Prescribed by: JOSTIN SOLARES on 08/24/20 112 Promethazine HCl (Phenergan) 25 Mg Supp.rect, 25 MG RC Q4H Prescribed by: NABILA CHEN on 11/23/171936 Review of Systems Review of Systems Constitutional: no symptoms reported EENTM: No Symptoms Reported Respiratory: See HPI Cardiovascular: No Symptoms Reported Gastrointestinal: See HPI Genitourinary: No Symptoms Reported Musculoskeletal: see HPI Skin: no symptoms reported Psychiatric/Neurological: No Symptoms Reported Endocrine: No Symptoms Reported Hematologic/Lymphatic: No Symptoms Reported Past Ugvpudp-Gguwhe-Yfuuwa Hx Patient Social History Tobacco Use?: No Use of E-Cig and/or Vaping dev: No Substance use?: No Alcohol Use?: No Pt feels they are or have been: No Immunizations Up To Date Tetanus Booster (TDap): Unknown PED Vaccines UTD: Yes Influenza Vaccine Up-to-Date: No; Not Current First/Initial COVID19 Vaccinat: UNK Second COVID19 Vaccination Frankie: UNK COVID19 Vaccine 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 Past Medical History Surgeries: Yes (LEFT CLAVICLE FX/ORIF; URETERAL STENT FOR STONE) Orthopedic, Renal (Lithotripsy and ureteral stent) Respiratory: No Cardiac: No Neurological: Yes ("HEAT STROKE" PER PT) Genitourinary: Yes Kidney Stones Gastrointestinal: No Musculoskeletal: No Endocrine: No HEENT: No Cancer: No Psychosocial: No Integumentary: No Blood Disorders: No Physical Exam Vital Signs Vital Signs - First Documented 02/03/21 02:49 Temp 36.2 Pulse 71 Resp 13 B/P (MAP) 153/93 (113) Pulse Ox 100 O2 Delivery Room Air Capillary Refill : Less Than 3 Seconds Height, Weight, BMI Height: 5'11.00" Weight: 320lbs. oz. 145.891448mu; 39.00 BMI Method:Stated General Appearance: WD/WN, Anxious, Mild Distress, Obese HEENT: PERRL/EOMI, Normal ENT Inspection Neck: Normal Inspection, JVD Respiratory: Lungs Clear, Normal Breath Sounds, No Accessory Muscle Use, No Respiratory Distress, Other (Splinting respirations. No wheezing or prolonging of expiratory phase with forced expiratory auscultation. 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- XII Norm as Tested, Other (Mildly anxious) Skin: Normal Color, Warm/Dry Progress/Results/Core Measures Results/Orders Lab Results Laboratory Tests Test 02/03/21 02:52 02/03/21 02:57 Range/Units White Blood Count 7.7 4.3-11.0 10^3/uL Red Blood Count 4.99 4.30-5.52 10^6/uL Hemoglobin 15.1 13.3-17.7 g/dL Hematocrit 45 40-54 % Mean Corpuscular Volume 90 80-99 fL Mean Corpuscular Hemoglobin 30 25-34 pg Mean Corpuscular Hemoglobin Concent 34 32-36 g/dL Red Cell Distribution Width 12.7 10.0-14.5 % Platelet Count 290 130-400 10^3/uL Mean Platelet Volume 10.6 9.0-12.2 fL Immature Granulocyte % (Auto) 0 % Neutrophils (%) (Auto) 50 42-75 % Lymphocytes (%) (Auto) 40 12-44 % Monocytes (%) (Auto) 8 0-12 % Eosinophils (%) (Auto) 1 0-10 % Basophils (%) (Auto) 0 0-10 % Neutrophils # (Auto) 3.8 1.8-7.8 10^3/uL Lymphocytes # (Auto) 3.1 1.0-4.0 10^3/uL Monocytes # (Auto) 0.6 0.0-1.0 10^3/uL Eosinophils # (Auto) 0.1 0.0-0.3 10^3/uL Basophils # (Auto) 0.0 0.0-0.1 10^3/uL Immature Granulocyte # (Auto) 0.0 0.0-0.1 10^3/uL Prothrombin Time 12.7 12.2-14.7 SEC INR Comment 0.9 0.8-1.4 Activated Partial Thromboplast Time 26 24-35 SEC D-Dimer < 0.27 0.00-0.49 UG/ML Sodium Level 140 135-145 MMOL/L Potassium Level 3.8 3.6-5.0 MMOL/L Chloride Level 105 98-107 MMOL/L Carbon Dioxide Level 22 21-32 MMOL/L Anion Gap 13 5-14 MMOL/L Blood Urea Nitrogen 11 7-18 MG/DL Creatinine 0.98 0.60-1.30 MG/DL Estimat Glomerular Filtration Rate 93 BUN/Creatinine Ratio 11 Glucose Level 99 70-105 MG/DL Calcium Level 9.2 8.5-10.1 MG/DL Corrected Calcium 8.8 8.5-10.1 MG/DL Magnesium Level 2.2 1.6-2.4 MG/DL Total Bilirubin 0.4 0.1-1.0 MG/DL Aspartate Amino Transf (AST/SGOT) 18 5-34 U/L Alanine Aminotransferase (ALT/SGPT) 31 0-55 U/L Alkaline Phosphatase 65 40-136 U/L Myoglobin 39.6 10.0-92.0 NG/ML Troponin I < 0.028 <0.028 NG/ML C-Reactive Protein High Sensitivity 0.08 0.00-0.50 MG/DL Total Protein 7.4 6.4-8.2 GM/DL Albumin 4.5 3.2-4.5 GM/DL Lipase 34 8-78 U/L Influenza Type A (RT-PCR) Not Detected Not Detecte Influenza Type B (RT-PCR) Not Detected Not Detecte SARS-CoV-2 RNA (RT-PCR) Not Detected Not Detecte My Orders Orders - JOSTIN LUGO MD Cbc With Automated Diff (02/03/21 03:32) Magnesium (02/03/21 03:32) Chest 1 View, Ap/Pa Only (02/03/21 03:32) Ekg Tracing (02/03/21 03:32) Comprehensive Metabolic Panel (02/03/21 03:32) Myoglobin Serum (02/03/21 03:32) Protime With Inr (02/03/21 03:32) Partial Thromboplastin Time (02/03/21 03:32) O2 (02/03/21 03:32) Monitor-Rhythm Ecg Trace Only (02/03/21 03:32) Lipid Panel (02/04/21 06:00) Ed Iv/Invasive Line Start (02/03/21 03:32) Troponin I [place] (02/03/21 03:32) Lipase (02/03/21 04:00) Ondansetron Injection (Zofran Injectio (02/03/21 04:00) Lidocaine 2% Viscous 15 Ml (Xylocaine Vi (02/03/21 04:00) Antacid Suspension (Mylanta Suspension (02/03/21 04:00) Hs C Reactive Protein (02/03/21 05:24) Influenza A And B By Pcr (02/03/21 05:24) Covid 19 Inhouse Test (02/03/21 05:24) Ketorolac Injection (Toradol Injection) (02/03/21 05:30) Fibrin Degradation Products (02/03/21 02:52) Medications Given in ED Current Medications Medications Dose Ordered Sig/Fox Route Start Time Stop Time Status Last Admin Dose Admin Al Hydrox/Mg Hydrox/Simethicone 30 ml ONCE ONCE PO 02/03/21 04:00 02/03/21 04:01 DC 02/03/21 04:43 30 ML Ketorolac Tromethamine 30 mg ONCE ONCE IVP 02/03/21 05:30 02/03/21 05:32 DC 02/03/21 05:40 30 MG Lidocaine HCl 15 ml ONCE ONCE PO 02/03/21 04:00 02/03/21 04:01 DC 02/03/21 04:43 15 ML Ondansetron HCl 4 mg ONCE ONCE IVP 02/03/21 04:00 02/03/21 04:01 DC 02/03/21 04:43 4 MG Vital Signs/I&O 02/03/21 02:49 Temp 36.2 Pulse 71 Resp 13 B/P (MAP) 153/93 (113) Pulse Ox 100 O2 Delivery Room Air Blood Pressure Mean: 113 Progress Progress Note #1: Time: 04:04 Progress Note Initial work-up is unremarkable. Patient has tenderness to palpation over the left lower anterior chest wall and left upper quadrant of the abdomen. A trial of GI cocktail and Zofran will be administered. Lipase has been added to the lab work-up. Progress Note #2: Time: 05:31 Progress Note Lipase was normal. Chest x-ray revealed basilar opacities which could be atelectasis versus infectious etiology. Because of the x-ray appearance, Covid and influenza testing was added. CRP and D-dimer were added to the blood work. Toradol was ordered to treat the pain. GI cocktail had no effect on the pain. Progress Note #3: Progress Note Covid and influenza swabs were negative. D-dimer and CRP were normal. X-ray findings for likely atelectasis. Toradol improved with the pain. See discharge instructions for further discussion. Initial ECG Impression Date: Feb 03, 2021 Initial ECG Impression Time: 02:53 Initial ECG Rate: 66 Initial ECG Rhythm: Normal Sinus Initial ECG Intervals: Normal Initial ECG Impression: Normal Comment Normal sinus rhythm with no ST elevation or depression. No abnormal intervals or axis deviation. Diagnostic Imaging Diagonstic Imaging: Xray Plain Films/CT/US/NM/MRI: chest Comments Chest x-ray viewed by me and report reviewed. See report below: NAME: FUNMILAYO MOYA [facility] REC#: [id number] PT STATUS: REG ER : 1995 PHYSICIAN: JOSTIN LUGO MD ADMIT DATE: 02/03/21/ER Draft Date of Exam:02/03/21 CHEST 1 VIEW, AP/PA ONLY Clinical indication: Patient with chest pain. Exam: Portable chest x-ray upright view. Comparisons: None. Findings: Lungs/pleura: There is subtle mild airspace opacities involving both lung bases which may represent atelectasis, but superimposed infiltrates cannot be completely excluded. There is no pneumothorax. There is no pleural effusion. Mediastinum: Unremarkable. Pulmonary vasculature: Unremarkable. Heart: Unremarkable. Bones/extrathoracic soft tissue: Side plate and screws are seen affixing the left clavicle. Impression: There are mild airspace opacities involving both lung bases which may represent atelectasis, but superimposed lung infiltrates cannot be completely excluded. If there is continued concern for infectious process, then chest x-ray PA and lateral views with good respiratory effort would better evaluate. Dictated on workstation # [id number] Dict: 02/03/21 0439 Trans: 02/03/21 0442 [facility] [id number] Interpreted by: WM PEDRAZA MD Departure Impression Primary Impression: Pleuritic chest pain Additional Impressions: Left upper quadrant abdominal pain Dyspnea Qualified Codes: R06.00 - Dyspnea, unspecified Disposition: 01 HOME, SELF-CARE Condition: Improved Departure-Patient Inst. Decision time for Depature: 06:08 Referrals: NO,LOCAL PHYSICIAN (PCP/Family) Primary Care Physician Patient Instructions: Abdominal Pain, Adult ED, Chest Pain That Is Not Caused by the Heart (DC) Add. Discharge Instructions: Your chest pain seems to be pleuritic in nature. This can be treated with NSAID medications such as ibuprofen or naproxen. You may take ibuprofen up to 600 mg every 6 hours as needed or naproxen up to 500 mg twice daily. For pain not controlled by these NSAID medications, you may add Tylenol (acetaminophen) up to 1000 mg every 6 hours as needed. Take NSAID medications with food or milk to avoid stomach irritation. The tenderness in your abdomen may be due to inflammation of the stomach and esophagus linings. You may treat this in the short-term with antiacid medication such as Pepcid (famotidine) 20 mg twice daily or omeprazole 20 mg twice daily. Call with questions or concerns. Return to the ER if you have worsening symptoms. All discharge instructions reviewed with patient and/or family. Voiced understanding. Work/School Note: Work Release Form Date Seen in the Emergency Department: Feb 03, 2021 Return to Work: Feb 04, 2021 Restrictions: No Restrictions JOSTIN LUGO MD Feb 03, 2021 04:04
--- NOTE | 2021-02-03 04:42 | Diagnostic Imaging Report ---
Clinical indication: Patient with chest pain. Exam: Portable chest x-ray upright view. Comparisons: None. Findings: Lungs/pleura: There is subtle mild airspace opacities involving both lung bases which may represent atelectasis, but superimposed infiltrates cannot be completely excluded. There is no pneumothorax. There is no pleural effusion. Mediastinum: Unremarkable. Pulmonary vasculature: Unremarkable. Heart: Unremarkable. Bones/extrathoracic soft tissue: Side plate and screws are seen affixing the left clavicle. Impression: There are mild airspace opacities involving both lung bases which may represent atelectasis, but superimposed lung infiltrates cannot be completely excluded. If there is continued concern for infectious process, then chest x-ray PA and lateral views with good respiratory effort would better evaluate. Dictated by: Dictated on workstation # [id number]
[2021-02-03] MEDS ORDERED: KETOROLAC 30 MG/ML VIAL IVP ONE (05:30)
[2021-02-03 05:42] LABS: FIBRIN DEGRADATION PRODUCTS < 0.27 UG/ML (0.00-0.49)
[2021-02-03 06:30] VITALS: BP 129/94
== END 2021-02-03 06:30 | disposition home or self-care (01) ==
LOC: EDUNIT# 02:43 → ER 02:45
DX: R07.89 Other chest pain (principal); R10.12 Left upper quadrant pain; R06.00 Dyspnea, unspecified; E66.9 Obesity, unspecified; Z68.39 Body mass index [BMI] 39.0-39.9, adult; Z20.822 Contact with and (suspected) exposure to COVID-19
CPT/HCPCS: 36415; 71045; 80053; 83690; 83735; 83874; 84484; 85025; 85379; 85610; 85730; 86141; 87636; 93005; 93041

== ENCOUNTER 2021-02-22 18:01 | Emergency (ER) | payer SELFPAY ==
[~2021-02-22] VITALS: Ht 180.3 cm; Wt 145.0 kg
[2021-02-22] MEDS ORDERED: TETRACAINE 0.5% OPHTH SOLN 4 ML BTL (SINGLE DOSE ONLY) OU ONE (18:45)
[2021-02-22] MEDS ORDERED: BSS 15 ML IR ONE (18:45)
[2021-02-22] MEDS ORDERED: FLUORESCEIN (FLUOR-I-STRIPS) 1 MG STRP OU ONE (18:45)
--- NOTE | 2021-02-22 18:50 | ED Integumentary General ---
General Chief Complaint: Skin/Wound Problems Stated Complaint: SHINGLES Source: patient Exam Limitations: no limitations (ESTUARDO CAMPOS APRN) History of Present Illness Date Seen by Provider: Feb 22, 2021 Time Seen by Provider: 18:47 Initial Comments To ER with reports of shingles to the right side of the face. This began on 02/17/2021. He was seen at [facility] and started on acyclovir. He continues to take that. However he now notices some redness of the right eye. He has poor vision on the right eye even per baseline prior to this infection. He is not on steroids. He does not have an eye doctor. He does report quite a bit of pain to the right side of the scalp when washing his hair. Timing/Duration: constant Severity: moderate Location: face Associated Symptoms: denies symptoms (ESTUARDO CAMPOS APRN) Allergies and Home Medications Allergies Coded Allergies: No Known Drug Allergies (Unverified , 11/23/17) Patient Home Medication List Home Medication List Reviewed: Yes (ESTUARDO CAMPOS APRN) Cyclobenzaprine HCl (Cyclobenzaprine HCl) 10 Mg Tablet, 10 MG PO Q8H PRN for SPASMS Prescribed by: JOSTIN SOLARES on 08/24/201120 Lactobacillus Acidophilus (Acidophilus) 1 Each Capsule, 2 EACH PO QID Prescribed by: NABILA CHEN on 11/23/171936 Ondansetron (Zofran Odt) 8 Mg Tab.rapdis, 8 MG PO Q4H Prescribed by: NABILA CHEN on 11/23/171936 Prednisone (Prednisone) 20 Mg Tab, 20 MG PO DAILY Prescribed by: JOSTIN SOLARES on 08/24/20 112 Prednisone (Prednisone) 20 Mg Tab, 20 MG PO DAILY Prescribed by: ESTUARDO CAMPOS on 02/22/211915 Promethazine HCl (Phenergan) 25 Mg Supp.rect, 25 MG RC Q4H Prescribed by: NABILA CHEN on 11/23/171936 Trifluridine (Trifluridine) 7.5 Ml Drops, 1 ML OP BID Prescribed by: ESTUARDO CAMPOS on 02/22/211919 Review of Systems Review of Systems Constitutional: see HPI EENTM: see HPI, other (He denies any pain in the eye but does report redness and some discharge from the eye) Respiratory: no symptoms reported Cardiovascular: no symptoms reported Genitourinary: no symptoms reported Musculoskeletal: no symptoms reported Skin: no symptoms reported Psychiatric/Neurological: No Symptoms Reported Endocrine: No Symptoms Reported Hematologic/Lymphatic: No Symptoms Reported (ESTUARDO CAMPOS APRN) Past Ffvuzgf-Rdxwzg-Rbdtof Hx Immunizations Up To Date Tetanus Booster (TDap): Unknown PED Vaccines UTD: Yes First/Initial COVID19 Vaccinat: UNK Second COVID19 Vaccination Frankie: UNK (ESTUARDO CAMPOS APRN) Past Medical History Surgeries: Yes (LEFT CLAVICLE FX/ORIF; URETERAL STENT FOR STONE) Orthopedic, Renal Respiratory: No Cardiac: No Neurological: Yes ("HEAT STROKE" PER PT) Genitourinary: Yes Kidney Stones Gastrointestinal: No Musculoskeletal: No Endocrine: No HEENT: No Cancer: No Psychosocial: No Integumentary: No Blood Disorders: No (ESTUARDO CAMPOS APRN) Physical Exam Vital Signs Vital Signs - First Documented 02/22/21 02/22/21 18:19 19:34 Temp 36.9 Pulse 95 Resp 18 B/P (MAP) 142/105 (117) Pulse Ox 98 O2 Delivery Room Air (JOSTIN LUGO MD) Vital Signs Capillary Refill : (ESTUARDO CAMPOS APRN) General Appearance: WD/WN, no apparent distress HEENT: TMs normal, pharynx normal, other (Clusters of erythematous vesicles to the right side of the face that do not cross the midline.) Respiratory: no respiratory distress, no accessory muscle use Extremities: normal range of motion, non-tender Neurologic/Psychiatric: alert, normal mood/affect, oriented x 3 Skin: normal color, warm/dry Skin Problem Character: other (Vesicles on erythematous base to the right side of the face some of these are crusted. There is conjunctivitis on the right. Upon fluorescein staining there is no ulceration of the cornea. He does report little photophobia. There is no lesion of the outer ear or ear canal.) (ESTUARDO CAMPOS APRN) Progress/Results/Core Measures Results/Orders Medications Given in ED Current Medications Medications Dose Ordered Sig/Fox Route Start Time Stop Time Status Last Admin Dose Admin Acetaminophen/ Hydrocodone Bitart 1 ea Q4H PRN PO 02/22/21 19:30 02/22/21 19:38 DC 02/22/21 19:34 1 EA Balanced Salt Solution 15 ml ONCE ONCE IR 02/22/21 18:45 02/22/21 18:46 DC 02/22/21 19:07 15 ML Fluorescein Sodium 1 mg ONCE ONCE OU 02/22/21 18:45 02/22/21 18:46 DC 02/22/21 19:07 1 MG Tetracaine HCl 4 ml ONCE ONCE OU 02/22/21 18:45 02/22/21 18:46 DC 02/22/21 19:07 4 ML (JOSTIN LUGO MD) Vital Signs/I&O 02/22/21 02/22/21 18:19 19:34 Temp 36.9 Pulse 95 91 Resp 18 18 B/P (MAP) 142/105 (117) 132/77 Pulse Ox 98 O2 Delivery Room Air Room Air (JOSTIN LUGO MD) Departure Communication (Admissions) 191-Spoke with Dr. Cuevas, would recommend a topical antiviral such as trifluridine or Zirgan 1 drop 4 times daily. Pred forte twice daily. I am not sure these are available here in the emergency room and the pharmacies are already closed. (ESTUARDO CAMPOS APRN) Impression Primary Impression: Herpes zoster ophthalmicus of right eye Disposition: 01 HOME, SELF-CARE Condition: Stable Departure-Patient Inst. Decision time for Depature: 19:13 (ESTUARDO CAMPOS APRN) Referrals: JULIA CUEVAS OD, SHANE R OD NO,LOCAL PHYSICIAN (PCP) Primary Care Physician Patient Instructions: Shingles Add. Discharge Instructions: 1. Call Dr. Cuevas or Dr. Rodriguez for any worsening over the weekend. [facility] they will call you on Wednesday when their office opens for an appointment time. Continue the oral acyclovir, start the oral pain medication as needed, oral steroids as directed and the eyedrops as directed.. They have an after- hours number on their voicemail. All discharge instructions reviewed with patient and/or family. Voiced understanding. Scripts Trifluridine (Trifluridine) 7.5 Ml Drops 1 ML OP BID, #1 DROPS Prov: ESTUARDO CAMPOS APRN 02/22/21 Prednisone (Prednisone) 20 Mg Tab 20 MG PO DAILY, #11 TAB Take 3 tabs(60mg)daily, decrease by 1/2 tab(10mg)daily. Prov: ESTUARDO CAMPOS APRN 02/22/21 Work/School Note: Work Release Form Date Seen in the Emergency Department: Feb 22, 2021 Return to Work: Feb 28, 2021 ATTENDING PHYSICIAN NOTE: I was physically present as attending physician in the emergency department during the care of this patient, but I was not directly involved in the decision making or delivery of care for this patient. (JOSTIN LUGO MD) ESTUARDO CAMPOS APRN Feb 22, 2021 18:50 JOSTIN LUGO MD Feb 23, 2021 06:16
[2021-02-22] MEDS ORDERED: predniSONE 20 MG TAB PO ONE (19:15)
[2021-02-22] MEDS ORDERED: TRIFLURIDINE 1% 7.5 ML BTL (VIROPTIC) NON-FORMULARY OU SCH (19:15)
[2021-02-22] MEDS ORDERED: prednisoLONE 1% OPTH (PRED FORTE) 5 ML BTL OU SCH (19:15)
[2021-02-22] MEDS ORDERED: PRD20T PO (19:16)
[2021-02-22] MEDS ORDERED: TRIF7.5D6 OP (19:20)
[2021-02-22 19:34] VITALS: BP 132/77
== END 2021-02-22 19:34 | disposition home or self-care (01) ==
LOC: EDUNIT# 18:01 → ER 18:03
DX: B02.30 Zoster ocular disease, unspecified (principal)
CPT/HCPCS: 99281

== ENCOUNTER 2021-04-27 22:48 | Emergency (ER) | payer SELFPAY ==
[~2021-04-27] VITALS: Ht 180.3 cm; Wt 151.1 kg
[~2021-04-27 22:48] MED LIST changes: +TRIF7.5D6 OP
--- NOTE | 2021-04-27 22:58 | ED Cough/URI ---
General Stated Complaint: COUGH/DRAINAGE/CONGESTION/HEADACHE Source: patient History of Present Illness Date Seen by Provider: Apr 27, 2021 Time Seen by Provider: 22:52 Initial Comments PT ARRIVES VIA POV FROM HOME DAD IS BEING SEEN FOR SIMILAR SYMPTOMS , BUT HIS SYMPTOMS ARE ONGOING FOR THE LAST 2-3 WEEKS C/O COUGH AND CONGESTION C/O HEADACHE C/O BODY ACHES NO FEVER NO GI SYMPTOMS NO SHORTNESS OF BREATH NO LOSS OF TASTE OR SMELL SYMPTOMS BEGAN Wednesday04/23/21 HAS NOT TAKEN ANYTHING FOR SYMPTOMS HAS NOT SOUGHT CARE UNTIL TONIGHT SYMPTOMS NO DIFFERENT TONIGHT PT HAS HAD COVID-19 VACCINE X 2, NO BOOSTER NO FLU VACCINE NO CHRONIC ILLNESSES 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 PCP: GINA Allergies and Home Medications Allergies Coded Allergies: No Known Drug Allergies (Unverified , 11/23/17) Patient Home Medication List Home Medication List Reviewed: Yes Cyclobenzaprine HCl (Cyclobenzaprine HCl) 10 Mg Tablet, 10 MG PO Q8H PRN for SPASMS Prescribed by: JOSTIN SOLARES on 08/24/201120 Lactobacillus Acidophilus (Acidophilus) 1 Each Capsule, 2 EACH PO QID Prescribed by: NABILA CHEN on 11/23/171936 Ondansetron (Zofran Odt) 8 Mg Tab.rapdis, 8 MG PO Q4H Prescribed by: NABILA CHEN on 11/23/171936 Prednisone (Prednisone) 20 Mg Tab, 20 MG PO DAILY Prescribed by: JOSTIN SOLARES on 08/24/201120 Prednisone (Prednisone) 20 Mg Tab, 20 MG PO DAILY Prescribed by: ESTUARDO CAMPOS on 02/22/211915 Promethazine HCl (Phenergan) 25 Mg Supp.rect, 25 MG RC Q4H Prescribed by: NABILA CHEN on 11/23/171936 Trifluridine (Trifluridine) 7.5 Ml Drops, 1 ML OP BID Prescribed by: ESTUARDO CAMPOS on 02/22/211919 Review of Systems Review of Systems Constitutional: no symptoms reported EENTM: see HPI, nose congestion; No throat pain Respiratory: see HPI, cough; No short of breath Cardiovascular: no symptoms reported Gastrointestinal: no symptoms reported Genitourinary: no symptoms reported Musculoskeletal: see HPI (BODY ACHES) Skin: no symptoms reported Psychiatric/Neurological: See HPI, Headache Hematologic/Lymphatic: No Symptoms Reported Immunological/Allergic: no symptoms reported Past Tqnudkg-Ofhtfq-Mthbgc Hx Patient Social History Tobacco Use?: No (+ SECOND HAND SMOKE) Immunizations Up To Date Tetanus Booster (TDap): Unknown PED Vaccines UTD: Yes First/Initial COVID19 Vaccinat: 08/2020 Second COVID19 Vaccination Frankie: 10/2020 Past Medical History Surgeries: Yes (LEFT CLAVICLE FX/ORIF; URETERAL STENT FOR STONE) Orthopedic, Renal Respiratory: No Cardiac: No Neurological: Yes ("HEAT STROKE" PER PT) Genitourinary: Yes Kidney Stones Gastrointestinal: No Musculoskeletal: No Endocrine: No HEENT: No Cancer: No Psychosocial: No Integumentary: No Blood Disorders: No Physical Exam Vital Signs - First Documented Capillary Refill : Height: 5'11.00" Weight: 320lbs. oz. 145.486060mo; 44.00 BMI Method:Stated General Appearance: WD/WN, no apparent distress, obese HEENT: PERRL/EOMI, TMs normal, pharynx normal, other (MILD NASAL CONGESTION AND CLEAR POST NASAL DRAINAGE) Neck: normal inspection Respiratory: normal breath sounds, no respiratory distress, no accessory muscle use Cardiovascular: regular rate, rhythm, no murmur Gastrointestinal: soft Extremities: normal inspection, normal capillary refill Neurologic/Psychiatric: no motor/sensory deficits, alert, normal mood/affect, oriented x 3 Skin: normal color, warm/dry Progress/Results/Core Measures Suspected Sepsis SIRS Temperature: Pulse: Respiratory Rate: Blood Pressure / Mean: Results/Orders Lab Results Laboratory Tests Test 04/27/21 22:56 Range/Units Influenza Type A (RT-PCR) Detected H Not Detecte Influenza Type B (RT-PCR) Not Detected Not Detecte SARS-CoV-2 RNA (RT-PCR) Not Detected Not Detecte My Orders Orders - NABILA CHEN DO Covid 19 Inhouse Test (04/27/21 22:54) Influenza A And B By Pcr (04/27/21 22:54) Isolation Central Supply Req (04/27/21 22:54) Vital Signs/I&O 04/27/21 04/27/21 22:50 22:50 Temp 36.9 Pulse 105 Resp 22 B/P (MAP) 189/110 (136) Pulse Ox 95 O2 Delivery Room Air Room Air Capillary Refill : Progress Note : Progress Note PLACED IN ISOLATION ROOM PPE WORN COVID AND FLU TESTING DONE PT IS OUTSIDE TREATMENT WINDOW FOR ANTIVIRAL THERAPY FOR FLU Departure Impression Primary Impression: Influenza A Disposition: HOME, SELF-CARE Condition: Stable Departure-Patient Inst. Decision time for Depature: 00:12 Referrals: [facility] [place] Patient Instructions: Flu, Adult (DC) Add. Discharge Instructions: LOTS OF CLEAR LIQUIDS TYLENOL 1 GRAM/ MOTRIN 800 MG 4 TIMES A DAY FOR PAIN OR FEVER OVER THE COUNTER MUCINEX DM FOR COUGH AND CONGESTION FOLLOW UP WITH YOUR DR IN 4-5 DAYS IF NO BETTER Work/School Note: Work Release Form Date Seen in the Emergency Department: Apr 27, 2021 Return to Work: May 05, 2021 NABILA CHEN DO Apr 27, 2021 22:58
[2021-04-28 00:28] VITALS: BP 176/87
== END 2021-04-28 00:38 | disposition home or self-care (01) ==
LOC: EDUNIT# 22:48 → ER 22:49
DX: J10.1 Influenza due to other identified influenza virus with other respiratory manifestations (principal); E66.9 Obesity, unspecified; Z68.41 Body mass index [BMI] 40.0-44.9, adult; Z20.822 Contact with and (suspected) exposure to COVID-19
CPT/HCPCS: 87636; 99283